=== PATIENT | male | born 1935 | race Caucasian/White ===

== ENCOUNTER 2021-01-03 07:56 | Outpatient (REF) | payer MEDICARE, OTHER, SELFPAY ==
[2021-01-03 11:25] LABS: MANUAL DIFF FLAG NO
[2021-01-03 11:40] LABS: Basophils Percent Auto 0.5 % (0-2); Eosinophils Absolute Auto 0.2 X10*3/uL (0.0-0.4); Eosinophils Percent Auto 2.3 % (0-4); Hematocrit 40.3 % (42-52); Hemoglobin 13.2 g/dl (14.0-18.0); Imm Gran Abs Auto 0.01 X10*3/uL (0.00-0.03); Imm Gran Pct Auto 0.2 % (0.0-0.4); Lymphocytes Absolute Auto 1.8 X10*3/uL (1.2-4.9); Lymphocytes Percent Auto 26.9 % (20-40); Mean Corpuscular HGB Conc 32.8 g/dl (31.0-36.0); Mean Corpuscular Volume 97.6 fL (80-98); Mean Platelet Volume 10.9 fL (9.4-12.4); Monocytes Absolute Auto 0.6 X10*3/uL (0.1-1.2); Monocytes Percent Auto 8.9 % (2-11); Neutrophils Absolute Auto 4.1 X10*3/uL (2.0-8.3); Neutrophils Percent Auto 61.2 % (45-73); Platelet Count 242 X10*3/uL (160-400); Red Blood Count 4.13 X10*6/uL (4.60-5.80); Red Cell Distribution Width 13.9 % (11.0-16.0); White Blood Count 6.7 X10*3/uL (4.8-10.8)
[2021-01-03 11:49] LABS: Alanine Aminotransferase 18 U/L (0-40); Albumin Level 3.7 g/dL (3.5-5.0); Alkaline Phosphatase 61 U/L (39-117); Anion Gap 11 (12-20); Aspartate Amino Transferase 30 U/L (5-37); Bilirubin Direct 0.2 mg/dL (0.0-0.5); Bilirubin Total 0.5 mg/dL (0.0-1.0); Blood Urea Nitrogen 27 mg/dL (9-16); Calcium 9.2 mg/dL (8.4-10.2); Carbon Dioxide 31 mmol/L (22-29); Chloride 101 mmol/L (96-108); Cholesterol 161 mg/dL; Estimated Glomerular Filt Rate > 60; Glucose Fasting 102 mg/dL (60-99); HDL Cholesterol 71 mg/dL; Iron 68 mcg/dL (45-160); LDL Cholesterol Calculated 76 mg/dl; Percent Iron Saturation 21 % (15-50); Potassium 4.6 mmol/L (3.3-5.1); Sodium 138 mmol/L (135-145); Total Iron Binding Capacity 326 mcg/dL (228-428); Total Protein 6.2 g/dL (6.5-8.0); Triglycerides 73 mg/dL; Unsaturated Iron Binding 258 ug/dL
[2021-01-03 12:12] LABS: Ferritin 68 ng/mL (20-250); Prostate Specific Antigen Scr 1.33 ng/mL (<0.05-4.0)
== END 2021-01-03 07:57 | disposition home or self-care (01) ==
LOC: HO.HMGCLDS 07:56
PROVIDERS: PCP Internal Medicine; Visit Provider Internal Medicine
DX: Z00.00 Encounter for general adult medical examination without abnormal findings (principal); R53.83 Other fatigue; E78.00 Pure hypercholesterolemia, unspecified; D64.9 Anemia, unspecified; Z12.5 Encounter for screening for malignant neoplasm of prostate
CPT/HCPCS: 36415; 80048; 80061; 80076; 82728; 83540; 84153; 85025

== ENCOUNTER 2021-03-11 08:10 | Outpatient (REF) | payer MEDICARE, OTHER, SELFPAY ==
[2021-03-11 11:15] LABS: MANUAL DIFF FLAG NO
[2021-03-11 11:28] LABS: Basophils Percent Auto 0.4 % (0-2); Eosinophils Absolute Auto 0.1 X10*3/uL (0.0-0.4); Eosinophils Percent Auto 1.6 % (0-4); Imm Gran Abs Auto 0.03 X10*3/uL (0.00-0.03); Imm Gran Pct Auto 0.4 % (0.0-0.4); Lymphocytes Absolute Auto 1.3 X10*3/uL (1.2-4.9); Lymphocytes Percent Auto 17.1 % (20-40); Mean Corpuscular HGB Conc 33.3 g/dl (31.0-36.0); Mean Corpuscular Hemoglobin 33.1 pg (27.0-33.0); Mean Corpuscular Volume 99.2 fL (80-98); Mean Platelet Volume 10.5 fL (9.4-12.4); Monocytes Absolute Auto 0.5 X10*3/uL (0.1-1.2); Monocytes Percent Auto 6.5 % (2-11); Neutrophils Absolute Auto 5.5 X10*3/uL (2.0-8.3); Platelet Count 279 X10*3/uL (160-400); Red Blood Count 3.63 X10*6/uL (4.60-5.80); Red Cell Distribution Width 13.9 % (11.0-16.0); White Blood Count 7.4 X10*3/uL (4.8-10.8)
[2021-03-11 11:59] LABS: Alanine Aminotransferase 20 U/L (0-40); Albumin Level 3.4 g/dL (3.5-5.0); Alkaline Phosphatase 44 U/L (39-117); Anion Gap 12 (12-20); Aspartate Amino Transferase 27 U/L (5-37); Bilirubin Direct 0.3 mg/dL (0.0-0.5); Bilirubin Total 0.6 mg/dL (0.0-1.0); Blood Urea Nitrogen 27 mg/dL (9-16); Carbon Dioxide 28 mmol/L (22-29); Chloride 99 mmol/L (96-108); Cholesterol 152 mg/dL; Estimated Glomerular Filt Rate > 60; Glucose Fasting 96 mg/dL (60-99); HDL Cholesterol 63 mg/dL; LDL Cholesterol Calculated 72 mg/dl; Potassium 4.6 mmol/L (3.3-5.1); Sodium 134 mmol/L (135-145); Total Protein 5.5 g/dL (6.5-8.0); Triglycerides 88 mg/dL
== END 2021-03-11 08:11 | disposition home or self-care (01) ==
LOC: HO.HMGCLDS 08:10
PROVIDERS: PCP Internal Medicine; Visit Provider Internal Medicine
DX: Z00.00 Encounter for general adult medical examination without abnormal findings (principal); Z12.5 Encounter for screening for malignant neoplasm of prostate; E78.00 Pure hypercholesterolemia, unspecified; R53.83 Other fatigue
CPT/HCPCS: 36415; 80051; 80061; 80076; 82565; 82947; 84153; 84520; 85025

== ENCOUNTER 2021-11-03 02:00 | Inpatient (IN) | payer MEDICARE, OTHER, SELFPAY ==
[2021-11-03] VITALS (8 sets, daily range): BP systolic 105–163; BP diastolic 57–89; PULSE 62–97; RESP 13–20; TEMP 36.1–36.7; O2SAT 96–99; BMI 19.3
--- NOTE | ~2021-11-03 | XR_ITS ---
EXAMINATION: XR CHEST CLINICAL INFORMATION: Leukocytosis. COMPARISON: CT of the thoracic spine done on 07/28/2017. TECHNIQUE: Frontal view of the chest was obtained. FINDINGS: Both lungs are symmetrically expanded and appear clear. The cardiomediastinal silhouette is within normal limits. No evidence of pleural effusion. Post vertebral augmentation-related changes are noted in the thoracic spine, similar to prior study. XR/XR chest 1V IMPRESSION: No radiographic evidence of acute cardiopulmonary disease.
--- NOTE | ~2021-11-03 | XR_ITS ---
EXAMINATION: XR ABDOMEN KUB CLINICAL INDICATION: Constipation COMPARISON: None TECHNIQUE: AP view of the abdomen. FINDINGS: Nonobstructive bowel gas pattern. No dilated loops of bowel. Gas and stool throughout the colon. Mild stool burden with stool in the rectum. The lung bases are clear. Multilevel kyphoplasty. XR/XR KUB IMPRESSION: Mild colonic stool burden, with stool in the rectum.
--- NOTE | ~2021-11-03 | CT_ITS ---
EXAMINATION: CT ABDOMEN AND PELVIS WITHOUT CONTRAST CLINICAL INFORMATION: Rectal pain. Leukocytosis. COMPARISON: None TECHNIQUE: Multidetector volumetric imaging was performed from the superior aspect of the liver through the pubic symphysis. Sagittal and coronal reformatted images were obtained on the technologist's workstation. This CT examination was performed using dose optimization techniques as appropriate, variously including the following: *Automated exposure control *Adjustment of mA and/or kV according to patient size (this includes techniques or standardized protocols for targeted exams where dose is matched to indication/reason for exam; i.e. extremities or head) *Use of iterative reconstruction technique DLP: 418 mGy-cm FINDINGS: Technically limited study due to lack of intravenous contrast. LUNG BASES: The visualized lung bases are unremarkable. Trace amount of simple appearing pericardial effusion is noted. Atherosclerotic coronary arterial calcific disease is present. LIVER, GALLBLADDER, AND BILIARY TREE: The liver is normal in size, shape, and attenuation. No focal hepatic lesion or biliary ductal dilatation is present. The gallbladder is unremarkable with no evidence of radiopaque gallstones, gallbladder wall thickening, or obvious pericholecystic inflammatory changes. PANCREAS: Unremarkable. SPLEEN: Unremarkable. ADRENAL GLANDS: Unremarkable. KIDNEYS AND URETERS: The left kidney is normal in size, shape, and attenuation. No hydronephrosis, hydroureter, or calculi seen. No perinephric stranding. Solitary 3 mm radiopaque nonobstructing right renal calculus identified within the mid lateral calyx (268:4). 2.3 cm maximum dimension exophytic hypodense circumscribed lesion is noted within the medial posterior cortex near the inferior pole with Hounsfield value of 15, consistent with minimally complicated cyst. Mild perinephric stranding is also present, may represent superimposed infection. Correlation with urine lab exam is recommended.. An additional 2.4 cm hypodensity is also noted within the superior pole with Hounsfield value of 21, may represent complicated cyst or hypodense solid lesion, not optimally characterized (203:4). BLADDER: Markedly distended, may represent physiologic changes. No evidence of any calculi, wall thickening, diverticula or inflammatory changes present. GASTROINTESTINAL TRACT: Extensive fecal residual is noted starting from the level of the rectum to the cecum without evidence of any bowel wall thickening or pericolonic inflammatory changes. Note is however made of subtle perirectal stranding within the presacral space, possibility of early changes of Stercoral colitis may have similar appearance. The cecum, the ileocecal junction, the terminal ileum is herniating into the right-sided inguinal canal and is located within the right hemiscrotum without any obstruction. ABDOMINAL WALL: Large right-sided inguinoscrotal hernia containing cecum, proximal ascending colon, terminal ileum is noted without any CT evidence of superimposed obstruction. LYMPH NODES: Normal. VASCULAR: Diffuse atherosclerotic disease of the aorta and is branches. The distal abdominal aorta is ectatic. No evidence of any aneurysm. PELVIC VISCERA: There is no pelvic mass present. No evidence of any free fluid and/or free air. OSSEOUS STRUCTURES: Marked diffuse osteopenia and moderate mid to anterior compression deformity of L2 vertebral body is noted. Vertebral augmentation-related changes are noted within the partially included T11 vertebral body. CT/CT abdomen pelvis wo con IMPRESSION: 1. Technically limited study due to lack of intravenous contrast. Trace amount of simple appearing pericardial effusion is seen. Atherosclerotic coronary arterial disease is noted. 2. Solitary 3 mm nonobstructing right renal radiopaque calculus is noted within the mid lateral calyx. Subtle right renal perinephric stranding is present, may represent superimposed infection. There is however no evidence of any dilated pelvicalyceal system present. Exophytic hypodense 2.3 cm lesion is noted at the inferior pole, most consistent with minimally complicated cyst. An additional 2.4 cm hypodensity at superior pole of the right kidney may represent minimally complicated cyst versus hypodense solid lesion, not optimally characterized. 3. Markedly distended bladder, may represent physiologic changes. 4. Extensive fecal residual from the level of the rectum to the cecum. Subtle perirectal stranding within the presacral space is noted. Early changes of Stercoral colitis may have similar appearance. 5. Large right-sided inguinoscrotal hernia containing cecum, proximal ascending colon and terminal ileum without any CT evidence of superimposed obstruction. 6. Marked diffuse osteopenia and moderate mid to anterior compression deformity of L2 vertebral body, of indeterminate etiology and chronicity. Fleischner guidelines were followed.
[2021-11-03 04:42] LABS: Basophils Percent Auto 0.2 % (0-2); Eosinophils Percent Auto 0.1 % (0-4); Hematocrit 39.7 % (42.0-52.0); Hemoglobin 13.5 g/dl (14.0-18.0); Imm Gran Abs Auto 0.05 X10*3/uL (0.00-0.03); Imm Gran Pct Auto 0.3 % (0.0-0.4); Lymphocytes Absolute Auto 0.5 X10*3/uL (1.2-4.9); Lymphocytes Percent Auto 2.6 % (20-40); Mean Corpuscular Hemoglobin 32.6 pg (27.0-33.0); Mean Corpuscular Volume 95.9 fL (80.0-98.0); Mean Platelet Volume 9.7 fL (9.4-12.4); Monocytes Absolute Auto 1.1 X10*3/uL (0.1-1.2); Monocytes Percent Auto 5.5 % (2-11); Neutrophils Absolute Auto 17.8 x10*3/uL (2.0-8.3); Neutrophils Percent Auto 91.3 % (45-73); Platelet Count 231 X10*3/uL (160-400); Red Blood Count 4.14 X10*6/uL (4.60-5.80); Red Cell Distribution Width 13.3 % (11.0-16.0); SCAN SMEAR FLAG 1; White Blood Count 19.4 X10*3/uL (4.8-10.8)
[2021-11-03 04:43] LABS: MANUAL DIFF FLAG SCAN
[2021-11-03 04:58] LABS: SLIDE REVIEW VERIFIED
[2021-11-03 05:02] LABS: Anion Gap 13 (12-20); Blood Urea Nitrogen 30 mg/dL (9-16); Carbon Dioxide 26 mmol/L (22-29); Chloride 100 mmol/L (96-108); Creatinine Clr Calc Pharmacy 47.3; Estimated Glomerular Filt Rate > 60; Glucose Random 126 mg/dL (60-115); Potassium 4.4 mmol/L (3.3-5.1); Sodium 135 mmol/L (135-145)
--- NOTE | 2021-11-03 05:39 | ED.GENADULT ---
HPI - General Adult General Chief complaint: General Medical Stated complaint: dehydrated, constipation, hernia Time Seen by Provider: 11/03/21 04:17 Source: patient and family Mode of arrival: ambulatory Limitations: no limitations History of Present Illness HPI narrative: Patient comes emergency room complaining of feeling dehydrated, patient states that his mouth feels very cold, reports rectal pain from straining. Patient states that he took lactulose today. Patient denies dysuria, no chest pain or shortness of breath. Patient denies abdominal pain. Patient complaining of rectal pressure at this time Related Data Allergies Allergy/AdvReac Type Severity Reaction Status Date / Time No Known Allergies Allergy Verified 11/03/21 02:13 Review of Systems Review of Systems: Constitutional : No Weight loss, No Fever, No Chills, No Night Sweats, No Fatigue, No Malaise ENT/Mouth : No Hearing loss, No Ear Pain, No Nasal Congestion, No Sinus Pain, No Hoarseness, No sore throat, No Rhinorrhea, No Swallowing Difficulty Eyes: No Eye Pain, No Swelling, No Redness, No Foreign Body, No Discharge, No Vision Changes Cardiovascular : No Chest Pain, No SOB, No Dyspnea on Exertion, No Orthopnea, No Edema, No Palpitations Respiratory : No Cough, No Sputum, No Wheezing, No Smoke Exposure, No Dyspnea Gastrointestinal : Denies nausea vomiting or diarrhea, complaining of constipation, used lactulose prior to arrival. Complaining of rectal pressure, has black stool, treated to iron Genitourinary : no irregular bleeding, No Dysuria, No Urinary Frequency, No Hematuria, No Urinary Incontinence, No Urgency, No Flank Pain, No Urinary Flow Changes, No Hesitancy Musculoskeletal : No joint pain, No Myalgias, No Joint Swelling Skin : No Skin Lesions, No rash Neuro : No Weakness, No Numbness, No Paresthesias, No Loss of Consciousness, No Dizziness, No Headache Psych : No Anxiety/Panic, No Depression, No SI/HI/AH/VH, No Social Issues, Heme/Lymph: No Bruising, No Bleeding,No Lymphadenopathy Endocrine : No Polyuria, No Polydipsia, No Temperature Intolerance PMF Social History Social History Advance Directives: No Advance Directives Information Provided: Yes Physical Exam ED Vital Signs: Vital Signs - 24 hr 11/03/21 02:06 11/03/21 06:21 Temperature 97 F 98.1 F Pulse Rate 97 77 Respiratory Rate 20 13 Blood Pressure 156/82 H 133/67 Pulse Oximetry 97 97 BMI result Body Mass Index 19.3 Const Other: Appearance: Alert. Oriented X3. No acute distress. Eyes: Pupils equal, round and reactive to light. ENT: Pharynx normal. Neck: Normal inspection. Neck supple. No lymph nodes noted. No crepitus CVS: Normal heart rate and rhythm. Pulses normal. Normal S1 and S2 Respiratory: No respiratory distress. Breath sounds normal. No Wheezing. No rales Abdomen: Soft and nontender. Digital rectal exam shows brown stool Skin: Skin warm and dry. Normal skin color. Normal skin turgor. Extremities: No lower extremity edema. No Lacerations. No Rash Neuro: Oriented X 3. No motor deficit. No sensory deficit. Moving all extremities. No slurred speech. CN 2 through 12 grossly intact Psych: calm, cooperative, normal affect Course Course Course Narrative: When patient came in, labs were drawn. Patient has a white blood cell count of 19.4 which is new for him. At this time, there is no source of infection. Patient has known fever or chills, denies UTI or URI symptoms. The rest of the labs are pending, abdominal CT scan, urinalysis and chest x-ray. Flu and COVID tests pending I discussed with the patient and his daughter that he has blood in the stool. It is possible that is secondary to hemorrhoids versus colitis. CT scan is pending. Also, there is no clear source of infection at the time, chest x-ray and UA pending. Sepsis is not suspected. Sign-out given to Dr. Oliver Medical Decision Making Lab Data Result diagrams: 11/03/21 04:38 11/03/21 04:38 Labs: Lab Results 11/03/21 11/03/21 11/03/21 Range/Units 04:38 04:38 05:44 WBC 19.4 H (4.8-10.8) X10*3/uL RBC 4.14 L (4.60-5.80) X10*6/uL Hgb 13.5 L (14.0-18.0) g/dl Hct 39.7 L (42.0-52.0) % MCV 95.9 (80.0-98.0) fL MCH 32.6 (27.0-33.0) pg MCHC 34.0 (31.0-36.0) g/dl RDW 13.3 (11.0-16.0) % Plt Count 231 (160-400) X10*3/uL MPV 9.7 (9.4-12.4) fL Immature Gran % (Auto) 0.3 (0.0-0.4) % Neut % (Auto) 91.3 H (45-73) % Lymph % (Auto) 2.6 L (20-40) % [place] % (Auto) 5.5 (2-11) % Eos % (Auto) 0.1 (0-4) % Baso % (Auto) 0.2 (0-2) % Lymph # (Auto) 0.5 L (1.2-4.9) X10*3/uL [place] # (Auto) 1.1 (0.1-1.2) X10*3/uL Eos # (Auto) 0.0 (0.0-0.4) X10*3/uL Baso # (Auto) 0.0 (0.0-0.2) X10*3/uL Abs Immat Gran (auto) 0.05 H (0.00-0.03) X10*3/uL Absolute Neuts (auto) 17.8 H (2.0-8.3) x10*3/uL Absolute Nucleated RBC 0.000 (0.0-0.012) X10*3/uL Nucleated RBC % (auto) 0.0 (0.0-0.2) /100WBC Smear Tech's Comments VERIFIED Sodium 135 (135-145) mmol/L Potassium 4.4 (3.3-5.1) mmol/L Chloride 100 (96-108) mmol/L Carbon Dioxide 26 (22-29) mmol/L Anion Gap 13 (12-20) BUN 30 H (9-16) mg/dL Creatinine 0.97 (0.5-1.4) mg/dL Estim Creat Clear Calc 47.3 Estimated GFR > 60 Random Glucose 126 H (60-115) mg/dL Lactic Acid (0.5-2.0) mmol/L Calcium 9.0 (8.4-10.2) mg/dL Total Bilirubin 0.5 (0.0-1.0) mg/dL Direct Bilirubin 0.3 (0.0-0.5) mg/dL AST 31 (5-37) U/L ALT 14 (0-40) U/L Alkaline Phosphatase 56 D (39-117) U/L Total Protein 6.2 L (6.5-8.0) g/dL Albumin 3.6 (3.5-5.0) g/dL Stool Occult Blood POSITIVE (NEGATIVE) COVID-19 (ADY) (Negative) COVID-19 Clin Com Influenza Type A (TUSHAR) (Negative) Influenza Type B (TUSHAR) (Negative) Influenza A & B Note 11/03/21 11/03/21 11/03/21 Range/Units 06:18 06:18 06:18 WBC (4.8-10.8) X10*3/uL RBC (4.60-5.80) X10*6/uL Hgb (14.0-18.0) g/dl Hct (42.0-52.0) % MCV (80.0-98.0) fL MCH (27.0-33.0) pg MCHC (31.0-36.0) g/dl RDW (11.0-16.0) % Plt Count (160-400) X10*3/uL MPV (9.4-12.4) fL Immature Gran % (Auto) (0.0-0.4) % Neut % (Auto) (45-73) % Lymph % (Auto) (20-40) % [place] % (Auto) (2-11) % Eos % (Auto) (0-4) % Baso % (Auto) (0-2) % Lymph # (Auto) (1.2-4.9) X10*3/uL [place] # (Auto) (0.1-1.2) X10*3/uL Eos # (Auto) (0.0-0.4) X10*3/uL Baso # (Auto) (0.0-0.2) X10*3/uL Abs Immat Gran (auto) (0.00-0.03) X10*3/uL Absolute Neuts (auto) (2.0-8.3) x10*3/uL Absolute Nucleated RBC (0.0-0.012) X10*3/uL Nucleated RBC % (auto) (0.0-0.2) /100WBC Smear Tech's Comments Sodium (135-145) mmol/L Potassium (3.3-5.1) mmol/L Chloride (96-108) mmol/L Carbon Dioxide (22-29) mmol/L Anion Gap (12-20) BUN (9-16) mg/dL Creatinine (0.5-1.4) mg/dL Estim Creat Clear Calc Estimated GFR Random Glucose (60-115) mg/dL Lactic Acid 0.7 (0.5-2.0) mmol/L Calcium (8.4-10.2) mg/dL Total Bilirubin (0.0-1.0) mg/dL Direct Bilirubin (0.0-0.5) mg/dL AST (5-37) U/L ALT (0-40) U/L Alkaline Phosphatase (39-117) U/L Total Protein (6.5-8.0) g/dL Albumin (3.5-5.0) g/dL Stool Occult Blood (NEGATIVE) COVID-19 (ADY) Negative (Negative) COVID-19 Clin Com See Note Influenza Type A (TUSHAR) Negative (Negative) Influenza Type B (TUSHAR) Negative (Negative) Influenza A & B Note See Note Discharge Plan Discharge Clinical Impression: Leukocytosis, GI bleed Patient Disposition: Still a Patient
[2021-11-03 05:56] LABS: OBS Int Ctl Valid YES; OBS1 POSITIVE (NEGATIVE)
[2021-11-03 06:04] LABS: Alanine Aminotransferase 14 U/L (0-40); Albumin Level 3.6 g/dL (3.5-5.0); Alkaline Phosphatase 56 U/L (39-117); Aspartate Amino Transferase 31 U/L (5-37); Bilirubin Direct 0.3 mg/dL (0.0-0.5); Bilirubin Total 0.5 mg/dL (0.0-1.0); Total Protein 6.2 g/dL (6.5-8.0)
[2021-11-03 06:38] LABS: Lactic Acid 0.7 mmol/L (0.5-2.0)
[2021-11-03 06:44] LABS: IDNOW Serial# 16C4AD1C; Influenza A Negative (Negative); Influenza B2 Negative (Negative)
[2021-11-03 06:45] LABS: COVID-19 Test Negative (Negative)
[2021-11-03 08:30] LABS: Appearance Urine CLEAR; Color Urine YELLOW; Glucose Urine UA NEG (NEG); Leukocyte Esterase Urine NEG (NEG); Nitrite Urine NEG (NEG); Specific Gravity - Urine 1.025 (1.005-1.025); Urine Blood NEG (NEG); Urine Ketones 15 MG/DL (NEG); Urine Protein NEG (NEG-TRACE)
[2021-11-03] MEDS: levoFLOXacin/D5W 500 MG/100 ML PIGGYBACK 100 MG IV (08:47)
--- NOTE | 2021-11-03 10:02 | P.HPHOSP_ITS ---
History of Present Illness Date of Service: 11/03/21 Chief Complaint: Constipation, abdominal pressure an 86 years old male with PMH of Parkinson, in CHF, HTN, depression among others who presented to the hospital complaining of constipation and pressure in his abdomen. The patient reported not moved his bowels for few days prior to admission and that he woke up in level with the night feeling very constipated, dry and weak Cardizem before with reported pressure in his abdomen. He denies any fever, chills, abdominal pain, nausea or vomiting or urinary symptoms. In the emergency a CT scan of the abdomen was consistent with large stool burden and evidence of stercoral colitis. Admitted for further evaluation and treatment. Review of Systems Review of Systems: No fever, chills But has generalized weakness No chest pain, palpitation No shortness of breath or coughing reporting abdominal pressure with associated constipation No urinary symptoms No any rash or wounds PMFSH Social History Patient Tobacco Use Status: Never used Tobacco Advance Directives: No Advance Directives Information Provided: Yes Meds Allergies Allergy/AdvReac Type Severity Reaction Status Date / Time No Known Allergies Allergy Verified 11/03/21 02:13 Active Medications: Current Medications Pharmacy Consult (Consult Rx Perform Med Rec) 1 each MISCELLANE ONCE PRN PRN Reason: Consult order Home Medications Medication Instructions Recorded Confirmed Last Taken Type alendronate 70 mg tablet 1 tab PO SA@0900 11/03/21 11/03/21 10/26/21 History ascorbic acid (vitamin C) 500 mg 500 mg PO DAILY 11/03/21 11/03/21 11/02/21 History tablet carbidopa 25 mg-levodopa 100 mg 1 tab PO TID 11/03/21 11/03/21 11/02/21 History tablet docusate sodium 100 mg capsule 100 mg PO TID 11/03/21 11/03/21 11/02/21 History (Colace) ferrous sulfate 325 mg (65 mg 325 mg PO DAILY 11/03/21 11/03/21 11/02/21 History iron) tablet furosemide 20 mg tablet 1 tab PO DAILY 11/03/21 11/03/21 11/02/21 History ipratropium bromide 21 mcg (0.03 1 spray INTRANASAL QID PRN 11/03/21 11/03/21 Unknown History %) nasal spray lactulose 10 gram/15 mL oral 30 ml PO BID 11/03/21 11/03/21 11/02/21 History solution lorazepam 0.5 mg tablet 0.5 mg PO DAILY PRN 11/03/21 11/03/21 Unknown History losartan 50 mg tablet 1 tab PO DAILY 11/03/21 11/03/21 11/02/21 History lovastatin 40 mg tablet 1 tab DAILY 11/03/21 11/03/21 11/02/21 History metoprolol succinate 25 mg 1 tab PO DAILY 11/03/21 11/03/21 11/02/21 History tablet,extended release 24 hr multivitamin 1 tab PO DAILY 11/03/21 11/03/21 11/02/21 History pentazocine 50 mg-naloxone 0.5 mg 1 tab PO TID 11/03/21 11/03/21 11/02/21 History tablet selegiline HCl 5 mg capsule 1 cap PO DAILY 11/03/21 11/03/21 11/02/21 History sertraline 50 mg tablet 25 mg PO DAILY 11/03/21 11/03/21 11/02/21 History Physical Exam Vital Signs and Narrative: Vital Signs: Last Vital Signs Temp 98.1 F 11/03/21 06:21 Pulse 67 11/03/21 08:55 Resp 14 11/03/21 08:55 BP 119/58 L 11/03/21 08:55 Pulse Ox 96 11/03/21 08:55 BMI result Body Mass Index 19.3 Const: Other: Constitutional : Alert, oriented, not in distress Neck : Normal inspection, Supple Cardiovascular : RRR, no JVP, no lower extremity edema Respiratory : fair bilateral air entry, no crackles, wheezes or rhonchi Gastrointestinal: soft, lax, decreased bowel sounds, Non tender with palpation but sensitive Skin : Warm, Dry Neurological : Alert & oriented to self and place, No focal deficit , CN 2-12 within normal Results Labs CBC and Chem 7: 11/03/21 04:38 11/03/21 04:38 Labs: Laboratory Results - last 24 hr 11/03/21 11/03/21 11/03/21 04:38 04:38 05:44 MCV 95.9 MCH 32.6 MCHC 34.0 RDW 13.3 Plt Count 231 MPV 9.7 Immature Gran % (Auto) 0.3 Neut % (Auto) 91.3 H Lymph % (Auto) 2.6 L [place] % (Auto) 5.5 Eos % (Auto) 0.1 Baso % (Auto) 0.2 Lymph # (Auto) 0.5 L [place] # (Auto) 1.1 Eos # (Auto) 0.0 Baso # (Auto) 0.0 Abs Immat Gran (auto) 0.05 H Absolute Neuts (auto) 17.8 H Absolute Nucleated RBC 0.000 Nucleated RBC % (auto) 0.0 Smear Tech's Comments VERIFIED Anion Gap 13 Estim Creat Clear Calc 47.3 Estimated GFR > 60 Random Glucose 126 H Lactic Acid Calcium 9.0 Total Bilirubin 0.5 Direct Bilirubin 0.3 AST 31 ALT 14 Alkaline Phosphatase 56 D Total Protein 6.2 L Albumin 3.6 Urine Color Urine Appearance Urine pH Ur Specific [place] Urine Protein Urine Glucose (UA) Urine Ketones Urine Blood Urine Nitrite Ur Leukocyte Esterase Stool Occult Blood POSITIVE COVID-19 (ADY) COVID-19 Clin Com Influenza Type A (TUSHAR) Influenza Type B (TUSHAR) Influenza A & B Note 11/03/21 11/03/21 11/03/21 06:18 06:18 06:18 MCV MCH MCHC RDW Plt Count MPV Immature Gran % (Auto) Neut % (Auto) Lymph % (Auto) [place] % (Auto) Eos % (Auto) Baso % (Auto) Lymph # (Auto) [place] # (Auto) Eos # (Auto) Baso # (Auto) Abs Immat Gran (auto) Absolute Neuts (auto) Absolute Nucleated RBC Nucleated RBC % (auto) Smear Tech's Comments Anion Gap Estim Creat Clear Calc Estimated GFR Random Glucose Lactic Acid 0.7 Calcium Total Bilirubin Direct Bilirubin AST ALT Alkaline Phosphatase Total Protein Albumin Urine Color Urine Appearance Urine pH Ur Specific [place] Urine Protein Urine Glucose (UA) Urine Ketones Urine Blood Urine Nitrite Ur Leukocyte Esterase Stool Occult Blood COVID-19 (ADY) Negative COVID-19 Clin Com See Note Influenza Type A (TUSHAR) Negative Influenza Type B (TUSHAR) Negative Influenza A & B Note See Note 11/03/21 08:01 MCV MCH MCHC RDW Plt Count MPV Immature Gran % (Auto) Neut % (Auto) Lymph % (Auto) [place] % (Auto) Eos % (Auto) Baso % (Auto) Lymph # (Auto) [place] # (Auto) Eos # (Auto) Baso # (Auto) Abs Immat Gran (auto) Absolute Neuts (auto) Absolute Nucleated RBC Nucleated RBC % (auto) Smear Tech's Comments Anion Gap Estim Creat Clear Calc Estimated GFR Random Glucose Lactic Acid Calcium Total Bilirubin Direct Bilirubin AST ALT Alkaline Phosphatase Total Protein Albumin Urine Color YELLOW Urine Appearance CLEAR Urine pH 6.0 Ur Specific [place] 1.025 Urine Protein NEG Urine Glucose (UA) NEG Urine Ketones 15 Urine Blood NEG Urine Nitrite NEG Ur Leukocyte Esterase NEG Stool Occult Blood COVID-19 (ADY) COVID-19 Clin Com Influenza Type A (TUSHAR) Influenza Type B (TUSHAR) Influenza A & B Note Imaging Radiologist's Impressions: Impressions KUB X-Ray 11/03/21 04:35 IMPRESSION: Mild colonic stool burden, with stool in the rectum. Chest X-Ray 11/03/21 06:55 IMPRESSION: No radiographic evidence of acute cardiopulmonary disease. Abdomen/Pelvis CT 11/03/21 07:00 IMPRESSION: 1. Technically limited study due to lack of intravenous contrast. Trace amount of simple appearing pericardial effusion is seen. Atherosclerotic coronary arterial disease is noted. 2. Solitary 3 mm nonobstructing right renal radiopaque calculus is noted within the mid lateral calyx. Subtle right renal perinephric stranding is present, may represent superimposed infection. There is however no evidence of any dilated pelvicalyceal system present. Exophytic hypodense 2.3 cm lesion is noted at the inferior pole, most consistent with minimally complicated cyst. An additional 2.4 cm hypodensity at superior pole of the right kidney may represent minimally complicated cyst versus hypodense solid lesion, not optimally characterized. 3. Markedly distended bladder, may represent physiologic changes. 4. Extensive fecal residual from the level of the rectum to the cecum. Subtle perirectal stranding within the presacral space is noted. Early changes of Stercoral colitis may have similar appearance. 5. Large right-sided inguinoscrotal hernia containing cecum, proximal ascending colon and terminal ileum without any CT evidence of superimposed obstruction. 6. Marked diffuse osteopenia and moderate mid to anterior compression deformity of L2 vertebral body, of indeterminate etiology and chronicity. Fleischner guidelines were followed. Assessment and Plan (1) Leukocytosis: Status: Acute (2) Stercoral colitis: Status: Acute (3) Fecal impaction: Status: Acute (4) Positive occult stool blood test: Status: Acute Plan an 86 years old male with PMH of Parkinson, in CHF, HTN, depression among others who presented to the hospital complaining of constipation and pressure in his abdomen. stercoral colitis Fecal impaction Seen on CT scan as reported Disimpacted, started on lactulose and fiber Received IV antibiotic, to hold Keep gentle hydration Leukocytosis Likely reactive not due to infection To monitor after holding further antibiotics Positive occult blood No bleeding reported, hemoglobin stable Likely hemorrhoidal bleeding Monitor H and H Parkinson Continue Sinemet Hypertension continue metoprolol, losartan Hold Lasix DVT PPX Lovenox the patient would likely need 2 overnight hospital stay for evaluation of possible infectious colitis and Monitor his blood levels with positive occult blood to prevent any further decompensation in to severe sepsis. Quality Stroke Does the patient have a stroke diagnosis?: No VTE Prior VTE?: No VTE Risk Level:: Medical - moderate - high VTE Device Contraindication: Treatment Not Indicated VTE Drug Contraindication: N/A - Med Ordered
--- NOTE | 2021-11-03 10:11 | PC.NURSE ---
pt alert and oriented, denies pain.. pt disimpacted by Dr. Oliver, large amount of pebble sized feces removed, pt tolerated well. pre and post vss.
--- NOTE | 2021-11-03 10:40 | PHA.MEDREC ---
Pharmacy Consult ? Medication Reconciliation Pharmacy has completed the medication reconciliation. spoke with patient and daughter who had a list of medications.
[2021-11-03] MEDS: 0.9 % Sodium Chloride 1,000 ML 80 ML IVCONT ×2 (11:01→23:04)
[2021-11-03] MEDS: Carbidopa/Levodopa 25/100 TABLET 1 TAB PO (20:03)
[2021-11-03] MEDS: Lactulose 20 GM/30 ML SOLUTION PO (20:03)
[2021-11-03] MEDS: Docusate Sodium 100 MG CAPSULE PO (20:03)
[2021-11-04] VITALS (7 sets, daily range): BP systolic 125–156; BP diastolic 7–78; PULSE 58–75; RESP 15–18; TEMP 36.2–37; O2SAT 93–99; BMI 19.3
[2021-11-04 04:57] LABS: Hematocrit 36.6 % (42.0-52.0); Hemoglobin 12.2 g/dl (14.0-18.0); Mean Corpuscular HGB Conc 33.3 g/dl (31.0-36.0); Mean Corpuscular Hemoglobin 32.3 pg (27.0-33.0); Mean Corpuscular Volume 96.8 fL (80.0-98.0); Mean Platelet Volume 9.9 fL (9.4-12.4); Platelet Count 197 X10*3/uL (160-400); Red Blood Count 3.78 X10*6/uL (4.60-5.80); Red Cell Distribution Width 13.4 % (11.0-16.0); White Blood Count 8.7 X10*3/uL (4.8-10.8)
[2021-11-04 05:14] LABS: Anion Gap 8 (12-20); Blood Urea Nitrogen 19 mg/dL (9-16); Calcium 8.2 mg/dL (8.4-10.2); Carbon Dioxide 30 mmol/L (22-29); Chloride 102 mmol/L (96-108); Creatinine Clr Calc Pharmacy 54.6; Estimated Glomerular Filt Rate > 60; Glucose Random 91 mg/dL (60-115); Potassium 4.2 mmol/L (3.3-5.1); Sodium 136 mmol/L (135-145)
[2021-11-04] MEDS: Losartan Potassium 50 MG TABLET PO (09:22)
[2021-11-04] MEDS: Multivitamin TABLET 1 TAB PO (09:22)
[2021-11-04] MEDS: Carbidopa/Levodopa 25/100 TABLET 1 TAB PO ×3 (09:22→21:20)
[2021-11-04] MEDS: Ascorbic Acid 500 MG TABLET PO (09:22)
[2021-11-04] MEDS: Metoprolol Succinate ER 25 MG TAB.ER.24H PO (09:22)
[2021-11-04] MEDS: Docusate Sodium 100 MG CAPSULE PO ×3 (09:22→21:20)
[2021-11-04] MEDS: Sertraline HCL 25 MG TABLET PO (09:22)
[2021-11-04] MEDS: Lactulose 20 GM/30 ML SOLUTION PO ×2 (09:22→21:20)
[2021-11-04] MEDS: polyethylene glycoL 3350 17 GM POWD.PACK PO (09:27)
--- NOTE | 2021-11-04 10:14 | P.PNIM_ITS ---
Subjective Subjective Date of Service: 11/04/21 Interval History: seen and evaluated this morning Sitting comfortable in his bed having breakfast No bowel movement since last night No reported overnight events Review of Systems No fever, chills But has generalized weakness No chest pain, palpitation No shortness of breath or coughing reporting abdominal pressure has improved No urinary symptoms No any rash or wounds Physical Exam Vital Signs: Vital Signs: Last Vital Signs Temp 97.9 F 11/04/21 08:26 Pulse 75 11/04/21 09:11 Resp 18 11/04/21 08:26 BP 156/78 H 11/04/21 09:11 Pulse Ox 97 11/04/21 09:11 BMI result Body Mass Index 19.3 Const: Other: Constitutional : Alert, oriented, not in distress Neck : Normal inspection, Supple Cardiovascular : RRR, no JVP, no lower extremity edema Respiratory : fair bilateral air entry, no crackles, wheezes or rhonchi Gastrointestinal: soft, lax, having regular bowel sounds, Non tender with palpation Skin : Warm, Dry Neurological : Alert & oriented to self and place, No focal deficit , CN 2-12 within normal Objective Data Active Medications Acetaminophen (Acetaminophen 325 Mg Tablet) 650 mg PO Q6H PRN PRN Reason: Pain, Mild (Pain Scale 1-3) Ascorbic Acid (Ascorbic Acid 500 Mg Tablet) 500 mg PO DAILY [facility] Last Admin: 11/04/21 09:22 Dose: 500 mg Documented by: BRANDY Carbidopa/Levodopa (Carbidopa/Levodopa 25/100 Tablet) 1 tab PO TID [facility] Last Admin: 11/04/21 09:22 Dose: 1 tab Documented by: BRANDY Docusate Sodium (Docusate Sodium 100 Mg Capsule) 100 mg PO TID [facility] Last Admin: 11/04/21 09:22 Dose: 100 mg Documented by: BRANDY Sodium Chloride (Ns) 1,000 mls @ 80 mls/hr IVCONT .[id number] [facility] Last Admin: 11/03/21 23:04 Dose: 80 mls/hr Documented by: DUGLAS Ipratropium Edwards (Ipratropium Edwards Kip 0.03 % 30 Ml [place]) 1 spray NOSTRIL-B QID PRN PRN Reason: Allergy Symptoms Lactulose (Lactulose 20 Gm/30 Ml Solution) 20 gm PO BID [facility] Last Admin: 11/04/21 09:22 Dose: 20 gm Documented by: BRANDY Lorazepam (Lorazepam 0.5 Mg Tablet) 0.5 mg PO DAILY PRN PRN Reason: Anxiety Losartan Potassium (Losartan Potassium 50 Mg Tablet) 50 mg PO DAILY [facility]; Protocol Last Admin: 11/04/21 09:22 Dose: 50 mg Documented by: BRANDY Metoprolol Succinate (Metoprolol Succinate Er 25 Mg Tab.Er.24h) 25 mg PO DAILY [facility]; Protocol Last Admin: 11/04/21 09:22 Dose: 25 mg Documented by: BRANDY Multivitamins/Vitamin C (Multivitamin Tablet) 1 tab PO DAILY [facility] Last Admin: 11/04/21 09:22 Dose: 1 tab Documented by: RBANDY Pt Own Med ( Pentazocine-Naloxone 50-0.5 Mg Tablet) 1 tab PO TID [facility] Last Admin: 11/04/21 09:21 Dose: 1 tab Documented by: BRANDY Ondansetron HCl (Ondansetron Hcl 4 Mg/2 Ml Vial) 4 mg IVPUSH Q8H PRN PRN Reason: Nausea and Vomiting Pharmacy Consult (Consult Rx Perform Med Rec) 1 each MISCELLANE ONCE PRN PRN Reason: Consult order Polyethylene Glycol (Polyethylene Glycol 3350 17 Gm Powd.Pack) 17 gm PO DAILY [facility] Last Admin: 11/04/21 09:27 Dose: 17 gm Documented by: BRANDY Psyllium Hydrophilic Mucilloid (Psyllium Seed 3.4 Gm Powd.Pack) 3.4 gm PO DAILY [facility] Last Admin: 11/04/21 09:22 Dose: 3.4 gm Documented by: BRANDY Selegiline HCl (Selegiline Hcl 5 Mg Capsule) 5 mg PO DAILY [facility] Last Admin: 11/04/21 09:22 Dose: 5 mg Documented by: BRANDY Sertraline HCl (Sertraline Hcl 25 Mg Tablet) 25 mg PO DAILY [facility] Last Admin: 11/04/21 09:22 Dose: 25 mg Documented by: BRANDY Sodium Chloride (0.9 % Sodium Chloride Flush 3 Ml Syringe) 3 ml IVFLUSH QSHIFT [facility] Last Admin: 11/04/21 09:23 Dose: Not Given Documented by: BRANDY Non-Admin Reason: IV Running Labs CBC & Chem 7: 11/04/21 04:34 11/04/21 04:34 Labs: Laboratory Results - last 24 hr 11/04/21 11/04/21 04:34 04:34 MCV 96.8 MCH 32.3 MCHC 33.3 RDW 13.4 Plt Count 197 MPV 9.9 Absolute Nucleated RBC 0.000 Nucleated RBC % (auto) 0.0 Anion Gap 8 L Estim Creat Clear Calc 54.6 Estimated GFR > 60 Random Glucose 91 Calcium 8.2 L D Microbiology Microbiology Results: Microbiology 11/03/21 06:33 Blood Culture - Preliminary Blood - Venous No growth after 24 hours. 11/03/21 06:18 Blood Culture - Preliminary Blood - Venous No growth after 24 hours. Assessment and Plan (1) Leukocytosis: Status: Acute (2) Stercoral colitis: Status: Acute (3) Fecal impaction: Status: Acute (4) Physical deconditioning: Status: Acute Plan an 86 years old male with PMH of Parkinson, in CHF, HTN, depression among others who presented to the hospital complaining of constipation and pressure in his abdomen. stercoral colitis Fecal impaction, disimpacted Seen on CT scan as reported Received IV antibiotic, to hold as no fever, pain or diarrhea start MiraLax and Metamucil continue lactulose Keep gentle hydration for the rest of the day Leukocytosis Likely reactive not due to infection resolved To monitor after holding further antibiotics Positive occult blood No bleeding reported, hemoglobin stable Likely hemorrhoidal bleeding Monitor H and H physical deconditioning PT evaluation, ST are placement Parkinson Continue Sinemet Hypertension continue metoprolol, losartan Hold Lasix DVT PPX Lovenox the patient would Need overnight hospital stay for evaluation of possible infectious colitis and Monitor his blood levels with positive occult blood to prevent any further decompensation in to severe sepsisPending short-term rehab placement. Quality Stroke Does the patient have a stroke diagnosis?: No VTE Prior VTE?: No VTE Risk Level:: Medical - moderate - high VTE Device Contraindication: Treatment Not Indicated VTE Drug Contraindication: N/A - Med Ordered
--- NOTE | 2021-11-04 14:58 | MHC.CLN ---
NUTRITION CONSULT FOR POOR PO INTAKE. CURRENT INTAKE 75-100% AND PATIENT REPORTS GOOD APPETITE. TAKES CARNATION INSTANT BREAKFAST TWICE DAILY AT HOME. DOES NOT WANT SUPPLEMENT DURING ADMISSION. BMI=19.3 AND PATIENT IS 81% IBW. REPORTS RECENT WEIGHTS HAVE BEEN RELATIVELY STABLE. NO ADDITIONAL NUTRITION INTERVENTIONS AT THIS TIME.
--- NOTE | 2021-11-04 15:14 | MHC.CM.PN ---
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 PATIENT LIVES AT HOME HIS FAMILY VISITS HIM FREQUENTLY WITH IN THE DAY. HE HAS NO VNA OR DME SERVICES IN THE HOME. I [id number] WITH HIM THE THE PHYSICAL THEARPIST RECOMENDED HSHORT TERM REHAB HE AND HIS DAUGHTER DO NOT FEEL THIS IS REQUIRED THEY WILL TAKE THIS UNDER REVIEW. PATIENT IS WILLING TO HAVE NEW REFERRAL THE VNA FOR NURSING HX( [place] CHF,HTN )AFTER THE WEEKEND FELT WEEKENED CONSTIPATION AND ABD DISCOMFORT ,CONFIRMED COVID [facility] PCP DR MCGEE. TRANSPORTSTION FAMILY DISCHARGE PLAN HOME WITH 1. NEW REFERRAL TO THE [facility] ([facility]) FOR NURSING AND HOME PT 2. P,T, RECOMENDED STR (PT/DTR DO NOT FEEL THIS IS NECESSARY AND WE WILL REVISIT THIS RECOMENDATION ON 11/05/[address] MCGEE TRANSPORTATION FAMILY IMM 11/04/21
[2021-11-04] MEDS: 0.9 % Sodium Chloride Flush 3 ML SYRINGE IVFLUSH ×2 (15:35→21:20)
[2021-11-05 03:34] VITALS: BP 154/42; PULSE 68; RESP 16; TEMP 36.5; O2SAT 95
[2021-11-05 06:42] LABS: Anion Gap 10 (12-20); Blood Urea Nitrogen 15 mg/dL (9-16); Calcium 8.1 mg/dL (8.4-10.2); Carbon Dioxide 27 mmol/L (22-29); Chloride 101 mmol/L (96-108); Creatinine Clr Calc Pharmacy 55.3; Estimated Glomerular Filt Rate > 60; Glucose Random 97 mg/dL (60-115); Potassium 4.5 mmol/L (3.3-5.1); Sodium 133 mmol/L (135-145)
[2021-11-05 07:51] VITALS: BP 100/63; PULSE 72; RESP 16; TEMP 36.7; O2SAT 96
--- NOTE | 2021-11-05 09:23 | P.CDIC_ITS ---
CDI Concurrent Query Documentation Clarification: PHYSICIAN'S DOCUMENTATION REQUEST Date of Query: 11/05/21922 Patient Name: Jovani Cavanaugh Admit Date: 11/03/21 Dear Doctor, A review of the medical record indicates additional documentation may be needed. Please review below and update the documentation accordingly. Clinical Indicators: Risk Factors/Clinical Indicators/Treatments H&P: PMH - Congestive heart failure Home meds: Furosemide 1 Tab PO daily Please provide further specificity regarding the most likely type and acuity of CHF you are evaluating, treating, or monitoring. Examples include: Type: * Systolic * Diastolic * Combined Systolic/Diastolic * Other ? please specify * Unable to determine Acuity: * Acute * Chronic * Acute on chronic * Unable to determine Use of terms such as suspected, likely, concern for, or probable (associated with a specific diagnosis that is being evaluated, monitored, or treated as if it exists) are acceptable and can be coded in the inpatient setting, when documented at the time of discharge. Thank you, Gillain Richey [facility], CDIS Extension: [phone] Please use your independent medical judgment in providing your response. THIS QUERY IS PART OF THE PERMANENT MEDICAL RECORD Provider Response: Other Other Diagnosis: chronic diastolic CHF
[2021-11-05] MEDS: Multivitamin TABLET 1 TAB PO (09:30)
[2021-11-05] MEDS: Sertraline HCL 25 MG TABLET PO (09:30)
[2021-11-05] MEDS: Metoprolol Succinate ER 25 MG TAB.ER.24H PO (09:30)
[2021-11-05] MEDS: Ascorbic Acid 500 MG TABLET PO (09:30)
[2021-11-05] MEDS: Lactulose 20 GM/30 ML SOLUTION PO (09:30)
[2021-11-05] MEDS: Docusate Sodium 100 MG CAPSULE PO ×2 (09:30→14:54)
[2021-11-05] MEDS: Carbidopa/Levodopa 25/100 TABLET 1 TAB PO ×2 (09:30→14:54)
[2021-11-05] MEDS: Losartan Potassium 50 MG TABLET PO (09:30)
[2021-11-05] MEDS: polyethylene glycoL 3350 17 GM POWD.PACK PO (09:31)
[2021-11-05] MEDS: 0.9 % Sodium Chloride Flush 3 ML SYRINGE IVFLUSH (09:32)
--- NOTE | 2021-11-05 11:20 | PM.DS ---
DS: Providers Provider Date of Service: 11/05/21 Date of admission: 11/03/21 09:56 Primary care physician: Chadd Chang MD DS: Diagnosis Discharge Diagnosis (1) Leukocytosis: Status: Acute (2) Stercoral colitis: Status: Acute (3) Fecal impaction: Status: Acute (4) Physical deconditioning: Status: Acute (5) Hyponatremia: Status: Acute (6) Positive occult stool blood test: Status: Acute DS: Summary Hospital Course Hospital Course: admission note HPI ?an 86 years old male with PMH of Parkinson, in CHF, HTN, depression among others who presented to the hospital complaining of constipation and pressure in his abdomen.? The patient reported not moved his bowels for few days prior to admission and that he woke up in level with the night feeling very constipated, dry and weak Cardizem before with reported pressure in his abdomen.? He denies any fever, chills, abdominal pain, nausea or vomiting or urinary symptoms.? In the emergency a CT scan of the abdomen was consistent with large stool burden and evidence of? stercoral colitis.? Admitted for further evaluation and treatment. Hospital course The patient was admitted to the hospital for treatment of severe constipation and fecal impaction. He was disimpacted in the emergency and had an enema with large bowel movement documented that day. The patient felt much relieved after that as he was started on MiraLax and Metamucil and passed small bowel movements the next day. He was noted to have leukocytosis at time of presentation as a CT scan showed an evidence of stercolitis. Received antibiotic in the emergency but was held afterward with no evidence of infection As leukocytosis resolved the next morning. Evaluated by physical therapy team who recommended short-term rehab but the patient prefers to go back home and do physical therapy at home. VNA to follow. Noticed to have a positive occult blood in the emergency with no evidence of drop in his hemoglobin level. Developed mild hyponatremia with sodium of 133 at the day of discharge. To be followed with outpatient BMP. CT scan showed an evidence of kidney small cyst. No Abdominal pain or urinary problems reported by the patient. To be followed by PCP for any further investigation needed. Drink plenty of water increase your physical activity Change lactulose to as needed for constipation Start MiraLax and Metamucil Will repeat blood work next week Time Spent with Patient Time attestation: Total time spent providing and/or coordinating discharge services: Discharge coordination time: Greater than 30 minutes Quality: Safe Use of Opioids Does Pt have an Active Cancer Diagnosis on the Problem List?: No Quality: Stroke Does the patient have a stroke diagnosis?: No Physical Exam Vital Signs: Vital Signs: Last Vital Signs Temp 98.0 F 11/05/21 07:51 Pulse 72 11/05/21 07:51 Resp 16 11/05/21 07:51 BP 100/63 11/05/21 07:51 Pulse Ox 96 11/05/21 07:51 BMI result Body Mass Index 19.3 Const: Other: Constitutional : Alert, oriented, not in distress Neck : Normal inspection, Supple Cardiovascular : RRR, no JVP, no lower extremity edema Respiratory : fair bilateral air entry, no crackles, wheezes or rhonchi Gastrointestinal: soft, lax, having regular bowel sounds, Non tender with palpation, right inguinal hernia no tenderness or erythema noted. Skin : Warm, Dry Neurological : Alert & oriented to self and place, No focal deficit , CN 2-12 within normal DS: Data Data Completed and Pending Labs on day of discharge: Laboratory Results - last 24 hr 11/05/21 06:15 Sodium 133 L Potassium 4.5 Chloride 101 Carbon Dioxide 27 Anion Gap 10 L BUN 15 Creatinine 0.83 Estim Creat Clear Calc 55.3 Estimated GFR > 60 Random Glucose 97 Calcium 8.1 L Preliminary micro results at discharge 11/03/21 06:33 Blood Culture - Preliminary Blood - Venous No growth after 48 hours. 11/03/21 06:18 Blood Culture - Preliminary Blood - Venous No growth after [address] scan - abdomen: Radiologist's impression: ITS Impressions KUB X-Ray 11/03/21 04:35 IMPRESSION: Mild colonic stool burden, with stool in the rectum. Chest X-Ray 11/03/21 06:55 IMPRESSION: No radiographic evidence of acute cardiopulmonary disease. Abdomen/Pelvis CT 11/03/21 07:00 IMPRESSION: 1. Technically limited study due to lack of intravenous contrast. Trace amount of simple appearing pericardial effusion is seen. Atherosclerotic coronary arterial disease is noted. 2. Solitary 3 mm nonobstructing right renal radiopaque calculus is noted within the mid lateral calyx. Subtle right renal perinephric stranding is present, may represent superimposed infection. There is however no evidence of any dilated pelvicalyceal system present. Exophytic hypodense 2.3 cm lesion is noted at the inferior pole, most consistent with minimally complicated cyst. An additional 2.4 cm hypodensity at superior pole of the right kidney may represent minimally complicated cyst versus hypodense solid lesion, not optimally characterized. 3. Markedly distended bladder, may represent physiologic changes. 4. Extensive fecal residual from the level of the rectum to the cecum. Subtle perirectal stranding within the presacral space is noted. Early changes of Stercoral colitis may have similar appearance. 5. Large right-sided inguinoscrotal hernia containing cecum, proximal ascending colon and terminal ileum without any CT evidence of superimposed obstruction. 6. Marked diffuse osteopenia and moderate mid to anterior compression deformity of L2 vertebral body, of indeterminate etiology and chronicity. Fleischner guidelines were followed. Discharge Plan Discharge Patient Disposition: Home Health Service Discharge Diagnosis: fecal impaction, severe constipation Physical deconditioning Referrals: Chadd Chang MD [Primary Care Provider] - 1 Week Discharge Medications: New polyethylene glycol 3350 17 gram Powder In Packet 17 g PO DAILY 30 Days 0RF Metamucil Fiber Singles 3.4 gram Powder In Packet 3.4 g PO DAILY 30 Days 0RF Continued multivitamin Tablet 1 tab PO DAILY 0RF losartan 50 mg tablet 1 tab PO DAILY 0RF alendronate 70 mg tablet 1 tab PO SA@0900 0RF lovastatin 40 mg tablet 1 tab DAILY 0RF lorazepam 0.5 mg Tablet 0.5 mg PO DAILY PRN (Reason: Anxiety) 0RF ascorbic acid (vitamin C) 500 mg Tablet 500 mg PO DAILY 0RF pentazocine-naloxone 50-0.5 mg tablet 1 tab PO TID 0RF ferrous sulfate 325 mg (65 mg iron) Tablet 325 mg PO DAILY 0RF docusate sodium [Colace] 100 mg Capsule 100 mg PO TID 0RF furosemide 20 mg tablet 1 tab PO DAILY 0RF metoprolol succinate 25 mg tablet extended release 24 hr 1 tab PO DAILY 0RF carbidopa-levodopa 25-100 mg tablet 1 tab PO TID 0RF selegiline HCl 5 mg capsule 1 cap PO DAILY 0RF sertraline 50 mg tablet 25 mg PO DAILY 0RF ipratropium bromide 21 mcg (0.03 %) spray,non-aerosol 1 spray intranasal QID PRN (Reason: Allergy Symptoms) 0RF Changed lactulose 10 gram/15 mL solution 30 ml PO BID PRN (Reason: Constipation) Qty: 0 0RF Discharge Orders: Discharge Order (Routine); Ordered 11/05/21 Ordered By: Greg Rico Diet: advance to usual diet Activity on Discharge: As tolerated Stand Alone Forms: Patient Portal Discharge page Other Ambulatory Orders: Basic Metabolic Panel (Routine) Timeframe: 1 Week Facility: [facility] - Location: Laboratory Ordered By: Greg Rico Care Plan Goals: Read below Health Concerns: Read below Plan of Treatment: Read below Assessment: you were admitted to the hospital for evaluation of severe constipation. Found to have fecal impaction that was treated with enema and laxatives with good response over the course of hospital stay. You were evaluated by physical therapy team who recommended short-term rehab but you would prefer to go back home and to therapy at home. Drink plenty of water increase your physical activity Change lactulose to as needed for constipation Start MiraLax and Metamucil Will repeat blood work next week
--- NOTE | 2021-11-05 11:26 | W.MHC.F2F ---
Service Date Service Date: 11/05/21 Encounter Date of encounter: 11/05/21 Reasons for Services Signs and symptoms assessed: Physical deconditioning Severe constipation Reason for residential: medication treatment and teach disease management Reason for physical therapy: home safety and mobility and therapeutic exercises Homebound: Leaving the home is medically contraindicated at this time without the asist of a device and/or another person due th the listed conditions above and below. Reason homebound: unsteady gait / fall risk Certification: Based on the above findings, I certify that this patient is confined to the home and needs intermittent residential care, physical therapy and/or speech therapy, or continues to need occupational therapy. The patient is under my care, and I have initiated the establishment of the plan of care. The patient will be followed by a physician who will periodically review the plan of care.
--- NOTE | 2021-11-05 11:39 | MHC.CM.PN ---
Addendum entered by Kimmie Orellana 11/05/21 12:17: PATIENT FAMILY CHOSE [facility] FOR NURSNG AND HOME PHYSICAL THERAPY TO START TOMORROW THEY REQUESTED I HAVE THEM CALL SON OR DTR FOR INITIAL VISIT BY RN /PT TO BE PRESENT WITH THEIR DAD. ALL DISCHARGE PPAER WORK SENT VIA Givey TO THEM D/C SUMMARY , D/C INSTRUCTIONS AND FACE TO FACE DISCHARGE HOME WITH FAMILY WILL STAY WITH HIM UNTIL HE IS STRONGER WITH [facility] TO FOLLOW VNA AND HOME PT 1. EDUCATION ON [facility] SERVCIES FOR ELIEGEABILITY AND SERVICES FOR NOW AND FUTURE 3 INFORMATION ON [facility] PH[employer]IC[employer] GROUP THEY WOULD LIKE PATIENT TO HAVE A YOUNGER DOCTOR HIS DOCTOR IS NEAR [facility]. 4 INFORMATION ON LIFE ALERT OF MEDICAL ALERT DEVICES 5 INFORMATION ON HOW TO OBTAIN RELEASE OF MEDICAL RECORD OR APPLICATION FOR THE [facility] . TRANSPORTATION FAMILY Original Note: nurse case consultant note electronic medical record reviewed along with case discussed with staff nruse and hospitalist . met with patient today and his son Kye . i reviewed with both of them the physical therapy recomendations, and they are not interested , the physican feels he will be able to go home with new referral to the vna for nursing and home physical therapy . which they are accepting of. the two vna agenies i was able to secure is [facility] and [facility] both can start tomorrow 11/06/21 this [id number] was given to patient and his son. they are checking with patients dddddaughter for inptu. also explained about the [facility] care servicws and what they can provide , i gave them the name and encouiraged them to call for intake to see what services he may be eligeable now and possible need in the furture. meals on wheels , software configuration manager housekeeping , patients brother reported he will also speaks with his sister and further discuass with patient . also discussed the medical alert band or watch . discharge plna home with vna for nueisng diagnosis sign symptom management , medication reconcilation and home physical therapy transportation family pcp dr debbie love encouraged him to contact pcp for post hospitla discharge follow up medicare imm 11/04/21 d/c summary face to face and d/c instructiosn sent via [employer] to the a
[2021-11-05 11:58] VITALS: BP 106/53; PULSE 65; RESP 16; TEMP 36.6; O2SAT 98
== END 2021-11-05 15:32 | disposition home health service (06) | DRG 389 ==
LOC: HO.ED 07:59 → HO.EDOVER 10:06 → HO.S3 12:25
PROVIDERS: Emergency Medicine; Admitting Provider Student in an Organized Health Care Education/Training Program; Emergency Provider Emergency Medicine; PCP Internal Medicine; Visit Provider Student in an Organized Health Care Education/Training Program
DX: K56.41 Fecal impaction (principal); I50.32 Chronic diastolic (congestive) heart failure; E87.1 Hypo-osmolality and hyponatremia; R19.5 Other fecal abnormalities; I11.0 Hypertensive heart disease with heart failure; D72.829 Elevated white blood cell count, unspecified; G20 Parkinson's disease; K64.9 Unspecified hemorrhoids; Z20.822 Contact with and (suspected) exposure to COVID-19; Z79.899 Other long term (current) drug therapy
CPT/HCPCS: 36415; 71045; 74018; 74176; 80048; 80076; 81003; 82272; 83605; 85025; 85027; 87040; 87502; 87635; 96365; 97162; 99284; 99285; J1956

== ENCOUNTER 2022-08-13 13:53 | Outpatient (REF) | payer MEDICARE, OTHER, SELFPAY ==
[2022-08-13 16:51] LABS: MANUAL DIFF FLAG NO
[2022-08-13 16:54] LABS: Basophils Percent Auto 0.3 % (0-2); Eosinophils Absolute Auto 0.1 X10*3/uL (0.0-0.4); Eosinophils Percent Auto 1.5 % (0-4); Hematocrit 39.3 % (42.0-52.0); Hemoglobin 12.9 g/dl (14.0-18.0); Imm Gran Abs Auto 0.02 X10*3/uL (0.00-0.03); Imm Gran Pct Auto 0.3 % (0.0-0.4); Lymphocytes Absolute Auto 1.6 X10*3/uL (1.2-4.9); Lymphocytes Percent Auto 20.2 % (20-40); Mean Corpuscular HGB Conc 32.8 g/dl (31.0-36.0); Mean Corpuscular Hemoglobin 31.5 pg (27.0-33.0); Mean Corpuscular Volume 95.9 fL (80.0-98.0); Mean Platelet Volume 11.1 fL (9.4-12.4); Monocytes Absolute Auto 0.5 X10*3/uL (0.1-1.2); Monocytes Percent Auto 6.5 % (2-11); Neutrophils Absolute Auto 5.7 x10*3/uL (2.0-8.3); Neutrophils Percent Auto 71.2 % (45-73); Platelet Count 226 X10*3/uL (160-400); Red Cell Distribution Width 13.4 % (11.0-16.0)
[2022-08-13 17:13] LABS: Iron 108 mcg/dL (45-160); Percent Iron Saturation 36 % (15-50); Total Iron Binding Capacity 301 mcg/dL (228-428); Unsaturated Iron Binding 193 ug/dL
[2022-08-13 17:38] LABS: Ferritin 65 ng/mL (20-250); Folate 13.5 ng/mL (> or = 4.0); Vitamin B12 495 pg/mL (200-900)
== END 2022-08-13 13:54 | disposition home or self-care (01) ==
LOC: HO.HMGCLDS 13:53
PROVIDERS: PCP Internal Medicine; Visit Provider Internal Medicine
DX: D64.9 Anemia, unspecified (principal)
CPT/HCPCS: 36415; 82607; 82728; 82746; 83540; 85025

== ENCOUNTER 2023-07-19 15:39 | Emergency (ER) | payer MEDICARE, OTHER, SELFPAY ==
[2023-07-19 15:59] VITALS: BP 187/106; PULSE 69; RESP 18; TEMP 36; O2SAT 96; BMI 21.9
--- NOTE | 2023-07-19 16:18 | ED_ITS ---
HPI - General Adult General Chief complaint: Wound/Laceration Stated complaint: lac along vein, sent over by urgent care Time Seen by Provider: 07/19/23 19:41 Source: patient Mode of arrival: ambulatory Limitations: no limitations History of Present Illness HPI narrative: 88 yold male with pmh of parkisons and hyponatremia presents tot he ED for right hand laceration caused putting his hand inbetween couches while stumbling. there was metal on the couch. patient deneis falling to the ground, hitting head, loss of conscousness, chest pain, shortness of breath, abdominal pain, or pain in extremities. patient was given tdap shot at urgent care. Related Data Home Medications Medication Instructions Recorded Confirmed alendronate 70 mg tablet 1 tab PO SA@0900 11/03/21 11/03/21 ascorbic acid (vitamin C) 500 mg 500 mg PO DAILY 11/03/21 11/03/21 tablet carbidopa 25 mg-levodopa 100 mg 1 tab PO TID 11/03/21 11/03/21 tablet docusate sodium 100 mg capsule 100 mg PO TID 11/03/21 11/03/21 (Colace) ferrous sulfate 325 mg (65 mg 325 mg PO DAILY 11/03/21 11/03/21 iron) tablet furosemide 20 mg tablet 1 tab PO DAILY 11/03/21 11/03/21 ipratropium bromide 21 mcg (0.03 1 spray intranasal QID PRN Allergy 11/03/21 11/03/21 %) nasal spray Symptoms lorazepam 0.5 mg tablet 0.5 mg PO DAILY PRN Anxiety 11/03/21 11/03/21 losartan 50 mg tablet 1 tab PO DAILY 11/03/21 11/03/21 lovastatin 40 mg tablet 1 tab DAILY 11/03/21 11/03/21 metoprolol succinate 25 mg 1 tab PO DAILY 11/03/21 11/03/21 tablet,extended release 24 hr multivitamin 1 tab PO DAILY 11/03/21 11/03/21 pentazocine 50 mg-naloxone 0.5 mg 1 tab PO TID 11/03/21 11/03/21 tablet selegiline HCl 5 mg capsule 1 cap PO DAILY 11/03/21 11/03/21 sertraline 50 mg tablet 25 mg PO DAILY 11/03/21 11/03/21 Previous Rx's Medication Instructions Recorded lactulose 10 gram/15 mL oral 30 ml PO BID PRN Constipation #0 mL 11/05/21 solution polyethylene glycol 3350 17 gram 17 g PO DAILY 30 days 11/05/21 oral powder packet psyllium husk (aspartame) 3.4 gram 3.4 g PO DAILY 30 days 11/05/21 oral powder packet (Metamucil Fiber Singles) cephalexin 500 mg capsule 500 mg PO Q12H 7 days #14 caps 07/19/23 Allergies Allergy/AdvReac Type Severity Reaction Status Date / Time No Known Allergies Allergy Verified 11/03/21 02:13 Review of Systems 2 Review of Systems: right hand laceration Yes all other systems are reviewed and are negative [facility] Past Medical History Medical History (Updated 07/20/23 @ 00:00 by José Dela Cruz) Collar bone fracture Compression fracture of body of thoracic vertebra Osteoporosis Constipation Depression Anemia Parkinsons disease High cholesterol Hypertension Positive occult stool blood test Surgical History History of kyphoplasty Social History Social History Household Members: None Household Members Other:: last week. family has been staying with him. Housing: House Do you presently have visiting nurse or other home services: No Patient Tobacco Use Status: Never used Tobacco Smoked in Last 30 Days: No Use of substances other than those prescribed or required for medical reasons: No Any prior treatment program specific to substance use: No Advance Directives: No Advance Directives Information Provided: No Physical Exam ED Vital Signs: Vital Signs - 24 hr 07/19/23 15:59 Temperature 96.8 F Pulse Rate 69 Respiratory Rate 18 Blood Pressure 187/106 H Pulse Oximetry 96 Oxygen Delivery Method Room Air BMI result Body Mass Index 21.9 Const General: cooperative, healthy appearing, comfortable, no acute distress, well developed, alert, awake and Physically active Orientation/consciousness: oriented to person, oriented to place, oriented to time and patient oriented x3 HENMT Head: Yes normal to inspection, Yes No palpable skull fracture present, Yes normocephalic, Yes atraumatic and No abrasion Ears: hearing grossly normal bilaterally, external ears normal, TM's normal bilaterally, TM normal on the right, TM normal on the left, EAC's normal, mastoids normal and no periauricular adenopathy Eyes General: appearance normal, both eyes and all related structures Neck Neck: Yes normal visual inspection, Yes full ROM, Yes no lymphadenopathy, Yes no meningeal signs, Yes trachea midline, Yes supple, No anterior neck swelling and No tender Chest Chest palpation & inspection: normal inspection of the chest Resp Effort & Inspection: normal respiratory effort and able to speak in complete sentences Auscultation: clear to auscultation bilaterally Cardio Jugular venous distension: no JVD Heart sounds: S1 normal heart sound present and S2 normal heart sound present GI Inspection: Yes normal to inspection Palpation (GI): Soft to palpation, not firm, nontender, no guarding and not rigid General: Yes no CVA tenderness Back/Spine/Pelvis Back: no CVA tenderness and No back tenderness Skin Other: Right hand laceration General skin exam: no rashes or lesions noted, elasticity normal and turgor normal Neuro General: oriented to person, oriented to place, oriented to time, patient oriented x3, gait normal, tone normal, moves all extremities, Normal light touch and pain sensation, no meningeal signs, no focal motor deficits, CN's II-XI intact bilaterally and normal sensation to monofilament Extrem General: Yes normal to inspection and Yes full ROM Hand/finger images: 2 1. superficial laceration. negative for tenderness, ecchymosis, or crepitus. bleeding controlled. negative for signs of nerve or tendon injury. motor, neuro, and vascular exam is intact. Psych Appearance: grossly normal, well kempt and not disheveled Course Course Course Narrative: RME; 88-year-old male presents ED for right hand laceration sent from urgent Care for repair. Received tetanus shot. Patient has complete range of motion of fingers. Capillary refill is intact. Pulses intact. Will be evaluated [facility] Medications Administered Discontinued Medications Generic Name Dose Route Start Last Admin Trade Name Freq PRN Reason Stop Dose Admin Lidocaine HCl 5 ml 07/19/23 19:41 07/19/23 20:21 Lidocaine Hcl 1 % Mpf 5 Ml Vial INFILTRATI 07/19/23 19:42 5 ml ONCE ONE Administration Lidocaine HCl 5 ml 07/19/23 19:41 07/19/23 20:20 Lidocaine Hcl 1 % Mpf 5 Ml Vial INFILTRATI 07/19/23 19:42 5 ml ONCE ONE Administration Medical Decision Making Medical Decision Making [facility] Narrative: Ze uriarte with pmh of parkinsoninan presents to the ED forright hand laceration while trying to move in between couch. patient cut right hand on metal parl of couch. Wound cleaned with sterile saline Betadine iodine. Linear lacerations. 7 mL of lidocaine 1% placed into wound. nylon size 3 sutures used. 13 sutures placed. will discharge with antiiotics. negatie for signs of tendon nerve injury. no xrays needed. no tenderness, deformity, crepitus, or ecchymosis. Differential Diagnosis Differential Diagnoses: The differential diagnosis associated with the presentation includes (laceration) Admission/Observation Consideration of admission/observation: Escalation of care including admission/observation considered Independent Historian Clinical information obtained from an independent historian. History obtained from or confirmed by: Other ([facility]) Prescription Management I considered prescription management with: Antibiotic Discharge Plan Discharge Clinical Impression: Laceration Patient Disposition: Home, Self-Care Instructions: Laceration (ED) Additional Instructions: To the ED immediately for any redness swelling, pus discharge, foul odor, inability to move fingers extremities, bluish black discoloration, fever, chills, or any other concerning symptoms. Sutures can be removed in 10 days at any urgent Care, ED, or primary care provider. Please follow-up with primary care provider. He will be discharged with antibiotics to prevent infection. Prescriptions: New cephalexin 500 mg capsule 500 mg PO Q12H 7 Days Qty: 14 0RF No Action multivitamin Tablet 1 tab PO DAILY losartan 50 mg tablet 1 tab PO DAILY alendronate 70 mg tablet 1 tab PO SA@0900 lovastatin 40 mg tablet 1 tab DAILY lorazepam 0.5 mg Tablet 0.5 mg PO DAILY PRN (Reason: Anxiety) ascorbic acid (vitamin C) 500 mg Tablet 500 mg PO DAILY pentazocine-naloxone 50-0.5 mg tablet 1 tab PO TID ferrous sulfate 325 mg (65 mg iron) Tablet 325 mg PO DAILY docusate sodium [Colace] 100 mg Capsule 100 mg PO TID furosemide 20 mg tablet 1 tab PO DAILY metoprolol succinate 25 mg tablet extended release 24 hr 1 tab PO DAILY carbidopa-levodopa 25-100 mg tablet 1 tab PO TID selegiline HCl 5 mg capsule 1 cap PO DAILY sertraline 50 mg tablet 25 mg PO DAILY ipratropium bromide 21 mcg (0.03 %) spray,non-aerosol 1 spray intranasal QID PRN (Reason: Allergy Symptoms) polyethylene glycol 3350 17 gram Powder In Packet 17 g PO DAILY 30 Days 0RF Metamucil Fiber Singles 3.4 gram Powder In Packet 3.4 g PO DAILY 30 Days 0RF lactulose 10 gram/15 mL solution 30 ml PO BID PRN (Reason: Constipation) Qty: 0 0RF Interventions: ED Discharge Assessment Last Done: 07/19/23 21:46 Discharge Date/Time: 07/19/23 21:01 Print Language: Ugandan
[2023-07-19] MEDS: Lidocaine HCl 1 % MPF 5 ML VIAL INFILTRATI ×2 (20:20→20:21)
[2023-07-19 20:55] VITALS: BP 126/78; PULSE 78; RESP 18; O2SAT 98
== END 2023-07-19 21:01 | disposition home or self-care (01) ==
PROVIDERS: Emergency Provider Internal Medicine; PCP Internal Medicine
DX: S61.411A Laceration without foreign body of right hand, initial encounter (principal); W26.9XXA Contact with unspecified sharp object(s), initial encounter; Y93.9 Activity, unspecified; Y92.9 Unspecified place or not applicable; Y99.8 Other external cause status; Z79.899 Other long term (current) drug therapy
CPT/HCPCS: 99284

== ENCOUNTER 2023-09-29 03:13 | Emergency (ER) | payer MEDICARE, OTHER, SELFPAY ==
--- NOTE | ~2023-09-29 | CT_ITS ---
EXAMINATION: CT ABDOMEN AND PELVIS WITHOUT CONTRAST CLINICAL INFORMATION: Reason for Exam Lower abd pain , rectal pain with right inguinal COMPARISON: 11/03/2021 TECHNIQUE: Multidetector volumetric imaging was performed from the superior aspect of the liver through the pubic symphysis. Sagittal and coronal reformatted images were obtained on the technologist's workstation. This CT examination was performed using dose optimization techniques as appropriate, variously including the following: *Automated exposure control *Adjustment of mA and/or kV according to patient size (this includes techniques or standardized protocols for targeted exams where dose is matched to indication/reason for exam; i.e. extremities or head) *Use of iterative reconstruction technique DLP: 440 mGy-cm FINDINGS: LUNG BASES: Mild bibasilar atelectasis. Small pericardial effusion. LIVER, GALLBLADDER, AND BILIARY TREE: The liver is normal in size, shape, and attenuation. No focal hepatic lesion or biliary ductal dilatation is identified on this noncontrast exam. Gallbladder is not well assessed due to motion artifact. PANCREAS: Mildly atrophic, otherwise not well assessed due to motion artifact. SPLEEN: Grossly unremarkable. ADRENAL GLANDS: Grossly unremarkable. KIDNEYS AND URETERS: No hydronephrosis or obstructing calculus bilaterally. Tiny mid right renal calculus. Medial right renal cyst noted, for which no follow-up is recommended. BLADDER: Partially distended, grossly unremarkable. GASTROINTESTINAL TRACT: No convincing evidence for bowel obstruction. Moderate stool is present throughout the colon, and a large amount of stool is also present in the rectum. There is perirectal stranding and mild mural prominence, raising concern for stercoral colitis. No free air or significant free fluid is seen, with assessment limited in some regions due to motion artifact. ABDOMINAL WALL: Right inguinal hernia contains the distalmost small bowel, cecum, and proximal ascending colon. LYMPH NODES: No lymphadenopathy is seen, though assessment is limited in the absence of intravenous contrast. VASCULAR: There is atherosclerotic calcification along the aorta and iliac arteries. PELVIC VISCERA: Unremarkable. OSSEOUS STRUCTURES: Superior endplate height loss at L2 is unchanged from prior. Redemonstrated vertebral body cement at T11. CT/CT abdomen pelvis wo IV con IMPRESSION: 1. Large amount of stool in the rectum with perirectal stranding and mild mural prominence, concerning for stercoral colitis. 2. Right inguinal hernia containing the distalmost small bowel, cecum, and proximal ascending colon. No convincing bowel obstruction. 3. Small pericardial effusion.
[2023-09-29 03:21] VITALS: BP 156/80; PULSE 97; O2SAT 95
[2023-09-29 03:31] VITALS: BP 138/60; PULSE 71; RESP 18; TEMP 36.6; O2SAT 99; BMI 20.1
--- NOTE | 2023-09-29 05:12 | ED_ITS ---
HPI - Abdominal Pain General Chief Complaint: Abdominal Pain Stated Complaint: diarrhea Time Seen by Provider: 09/29/23 05:10 Source: patient Mode of arrival: ambulatory Limitations: no limitations History of Present Illness HPI narrative: Patient's history of chronic constipation with large right inguinal hernia with history of Parkinson disease was constipated for 2 days started on Metamucil and MiraLax now having loose bowels and pain in the rectal area also does have a large inguinal hernia which is same as before with slight tenderness no nausea no vomiting no fever no chills patient feel pain in the rectum Related Data Home Medications ?Medication ?Instructions ?Recorded ?Confirmed alendronate 70 mg tablet 1 tab PO SA@0900 11/03/21 11/03/21 ascorbic acid (vitamin C) 500 mg 500 mg PO DAILY 11/03/21 11/03/21 tablet carbidopa 25 mg-levodopa 100 mg 1 tab PO TID 11/03/21 11/03/21 tablet docusate sodium 100 mg capsule 100 mg PO TID 11/03/21 11/03/21 (Colace) ferrous sulfate 325 mg (65 mg 325 mg PO DAILY 11/03/21 11/03/21 iron) tablet furosemide 20 mg tablet 1 tab PO DAILY 11/03/21 11/03/21 ipratropium bromide 21 mcg (0.03 1 spray intranasal QID PRN Allergy 11/03/21 11/03/21 %) nasal spray Symptoms lorazepam 0.5 mg tablet 0.5 mg PO DAILY PRN Anxiety 11/03/21 11/03/21 losartan 50 mg tablet 1 tab PO DAILY 11/03/21 11/03/21 lovastatin 40 mg tablet 1 tab DAILY 11/03/21 11/03/21 metoprolol succinate 25 mg 1 tab PO DAILY 11/03/21 11/03/21 tablet,extended release 24 hr multivitamin 1 tab PO DAILY 11/03/21 11/03/21 pentazocine 50 mg-naloxone 0.5 mg 1 tab PO TID 11/03/21 11/03/21 tablet selegiline HCl 5 mg capsule 1 cap PO DAILY 11/03/21 11/03/21 sertraline 50 mg tablet 25 mg PO DAILY 11/03/21 11/03/21 Previous Rx's ?Medication ?Instructions ?Recorded lactulose 10 gram/15 mL oral 30 ml PO BID PRN Constipation #0 mL 11/05/21 solution polyethylene glycol 3350 17 gram 17 g PO DAILY 30 days 11/05/21 oral powder packet psyllium husk (aspartame) 3.4 gram 3.4 g PO DAILY 30 days 11/05/21 oral powder packet (Metamucil Fiber Singles) cephalexin 500 mg capsule 500 mg PO Q12H 7 days #14 caps 07/19/23 Allergies Allergy/AdvReac Type Severity Reaction Status Date / Time No Known Allergies Allergy Verified 09/29/23 03:37 Review of Systems Review of Systems Yes all other systems are reviewed and are negative [facility] Past Medical History Attestation statement: The following information was validated with the patient. Medical History (Updated 09/29/23 @ 07:06 by Nigel Vilchis MD) Collar bone fracture Compression fracture of body of thoracic vertebra Osteoporosis Constipation Depression Anemia Parkinsons disease High cholesterol Hypertension Positive occult stool blood test Surgical History History of kyphoplasty Social History Social History Household Members: None Household Members Other:: last week. family has been staying with him. Housing: House Do you presently have visiting nurse or other home services: No Patient Tobacco Use Status: Never used Tobacco Advance Directives: No Advance Directives Information Provided: Yes Physical Exam ED Vital Signs: Vital Signs - 24 hr 09/29/23 03:31 09/29/23 05:50 09/29/23 07:11 Temperature 98 F 97.7 F 97.7 F Pulse Rate 71 68 67 Respiratory Rate 18 16 16 Blood Pressure 138/60 144/61 H 145/61 H Pulse Oximetry 99 98 97 Oxygen Delivery Method Room Air Room Air Room Air 09/29/23 07:20 Temperature 97.7 F Pulse Rate 67 Respiratory Rate 16 Blood Pressure 145/61 H Pulse Oximetry 97 Oxygen Delivery Method Room Air BMI result Body Mass Index 20.1 Appearance: Alert. Oriented X3. No acute distress. Eyes: No pallor no icterus ENT: Pharynx normal. Oral Mucosa moist Neck: Normal inspection. Neck supple. CVS: Normal heart rate and rhythm. Pulses normal. Respiratory: No respiratory distress. Equal air entry bilateral, no wheezing/rales/rhonchi Abdomen: Soft and nontender. Bowel sounds are present, no mass palpable, no CVA tenderness large mild tender reducible right direct inguinal hernia rectal: Large amount of stool manual disimpaction done Skin: Skin warm and dry. Normal skin color. Normal skin turgor. Extremities: No lower extremity edema. No calf tenderness Neuro: Oriented X 3. No motor deficit. Intention tremors+ Medical Decision Making Medical Decision Making [facility] Narrative: After manual disimpaction patient had a good bowel movement in the ER feeling much better will discharge patient home Differential Diagnosis Differential Diagnoses: The differential diagnosis associated with the presentation includes Fecal impaction/incarcerated inguinal hernia Lab Data [facility] Lab Attestation statement: I reviewed the patient's lab results. 09/29/23 05:50 09/29/23 05:50 Labs: Lab Results 09/29/23 Range/Units 05:50 WBC 13.5 H (4.8-10.8) X10*3/uL RBC 3.85 L (4.60-5.80) X10*6/uL Hgb 12.4 L (14.0-18.0) g/dl Hct 37.1 L (42.0-52.0) % MCV 96.4 (80.0-98.0) fL MCH 32.2 (27.0-33.0) pg MCHC 33.4 (31.0-36.0) g/dl RDW 14.3 (11.0-16.0) % Plt Count 194 (160-400) X10*3/uL MPV 10.8 (9.4-12.4) fL Immature Gran % (Auto) 0.3 (0.0-0.4) % Neut % (Auto) 85.9 H (45-73) % Lymph % (Auto) 6.4 L (20-40) % [place] % (Auto) 7.2 (2-11) % Eos % (Auto) 0.1 (0-4) % Baso % (Auto) 0.1 (0-2) % Lymph # (Auto) 0.9 L (1.2-4.9) X10*3/uL [place] # (Auto) 1.0 (0.1-1.2) X10*3/uL Eos # (Auto) 0.0 (0.0-0.4) X10*3/uL Baso # (Auto) 0.0 (0.0-0.2) X10*3/uL Abs Immat Gran (auto) 0.04 H (0.00-0.03) X10*3/uL Absolute Neuts (auto) 11.6 H (2.0-8.3) x10*3/uL Absolute Nucleated RBC 0.000 (0.0-0.012) X10*3/uL Nucleated RBC % (auto) 0.0 (0.0-0.2) /100WBC Sodium 136 (135-145) mmol/L Potassium 4.4 (3.3-5.1) mmol/L Chloride 101 (96-108) mmol/L Carbon Dioxide 27 (22-29) mmol/L Anion Gap 12 (12-20) BUN 31 H (9-16) mg/dL Creatinine 1.10 (0.5-1.4) mg/dL Estim Creat Clear Calc 44.1 Estimated GFR > 60 Random Glucose 96 (60-115) mg/dL Lactic Acid 0.9 (0.5-2.0) mmol/L Calcium 9.1 D (8.4-10.2) mg/dL Total Bilirubin 0.8 (0.0-1.0) mg/dL AST 29 (5-37) U/L ALT < 5 (0-40) U/L Alkaline Phosphatase 66 (39-117) U/L Total Protein 6.8 (6.5-8.0) g/dL Albumin 3.5 (3.5-5.0) g/dL Independent Interpretation I performed an independent interpretation of an: CT Scan Radiology Impression Discussion of test interpretation with radiology: I have reviewed the radiologist's reading. Discharge Plan Discharge Clinical Impression: Constipation Patient Disposition: Home, Self-Care Instructions: Constipation (ED) Additional Instructions: Continue stool softener as prescribed by her PCP Drink plenty of fluids Prescriptions: No Action multivitamin Tablet 1 tab PO DAILY losartan 50 mg tablet 1 tab PO DAILY alendronate 70 mg tablet 1 tab PO SA@0900 lovastatin 40 mg tablet 1 tab DAILY lorazepam 0.5 mg Tablet 0.5 mg PO DAILY PRN (Reason: Anxiety) ascorbic acid (vitamin C) 500 mg Tablet 500 mg PO DAILY pentazocine-naloxone 50-0.5 mg tablet 1 tab PO TID ferrous sulfate 325 mg (65 mg iron) Tablet 325 mg PO DAILY docusate sodium [Colace] 100 mg Capsule 100 mg PO TID furosemide 20 mg tablet 1 tab PO DAILY metoprolol succinate 25 mg tablet extended release 24 hr 1 tab PO DAILY carbidopa-levodopa 25-100 mg tablet 1 tab PO TID selegiline HCl 5 mg capsule 1 cap PO DAILY sertraline 50 mg tablet 25 mg PO DAILY ipratropium bromide 21 mcg (0.03 %) spray,non-aerosol 1 spray intranasal QID PRN (Reason: Allergy Symptoms) polyethylene glycol 3350 17 gram Powder In Packet 17 g PO DAILY 30 Days 0RF Metamucil Fiber Singles 3.4 gram Powder In Packet 3.4 g PO DAILY 30 Days 0RF lactulose 10 gram/15 mL solution 30 ml PO BID PRN (Reason: Constipation) Qty: 0 0RF cephalexin 500 mg capsule 500 mg PO Q12H 7 Days Qty: 14 0RF Interventions: ED Discharge Assessment Last Done: 09/29/23 07:20 Discharge Date/Time: 09/29/23 07:21 Print Language: Sami
[2023-09-29 05:50] VITALS: BP 144/61; PULSE 68; RESP 16; TEMP 36.5; O2SAT 98
[2023-09-29 05:54] LABS: MANUAL DIFF FLAG NO
[2023-09-29 05:59] LABS: Basophils Percent Auto 0.1 % (0-2); Eosinophils Percent Auto 0.1 % (0-4); Hematocrit 37.1 % (42.0-52.0); Hemoglobin 12.4 g/dl (14.0-18.0); Imm Gran Abs Auto 0.04 X10*3/uL (0.00-0.03); Imm Gran Pct Auto 0.3 % (0.0-0.4); Lymphocytes Absolute Auto 0.9 X10*3/uL (1.2-4.9); Lymphocytes Percent Auto 6.4 % (20-40); Mean Corpuscular HGB Conc 33.4 g/dl (31.0-36.0); Mean Corpuscular Hemoglobin 32.2 pg (27.0-33.0); Mean Corpuscular Volume 96.4 fL (80.0-98.0); Mean Platelet Volume 10.8 fL (9.4-12.4); Monocytes Percent Auto 7.2 % (2-11); Neutrophils Absolute Auto 11.6 x10*3/uL (2.0-8.3); Neutrophils Percent Auto 85.9 % (45-73); Platelet Count 194 X10*3/uL (160-400); Red Blood Count 3.85 X10*6/uL (4.60-5.80); Red Cell Distribution Width 14.3 % (11.0-16.0); White Blood Count 13.5 X10*3/uL (4.8-10.8)
[2023-09-29 06:12] LABS: Lactic Acid 0.9 mmol/L (0.5-2.0)
[2023-09-29 06:32] LABS: Anion Gap 12 (12-20)
[2023-09-29 06:40] LABS: Alanine Aminotransferase < 5 U/L (0-40); Albumin Level 3.5 g/dL (3.5-5.0); Alkaline Phosphatase 66 U/L (39-117); Aspartate Amino Transferase 29 U/L (5-37); Bilirubin Total 0.8 mg/dL (0.0-1.0); Blood Urea Nitrogen 31 mg/dL (9-16); Calcium 9.1 mg/dL (8.4-10.2); Carbon Dioxide 27 mmol/L (22-29); Chloride 101 mmol/L (96-108); Creatinine Clr Calc Pharmacy 44.1; Estimated Glomerular Filt Rate > 60; Glucose Random 96 mg/dL (60-115); Potassium 4.4 mmol/L (3.3-5.1); Sodium 136 mmol/L (135-145); Total Protein 6.8 g/dL (6.5-8.0)
[2023-09-29 07:11] VITALS: BP 145/61; PULSE 67; RESP 16; TEMP 36.5; O2SAT 97
[2023-09-29 07:20] VITALS: BP 145/61; PULSE 67; RESP 16; TEMP 36.5; O2SAT 97
== END 2023-09-29 07:21 | disposition home or self-care (01) ==
PROVIDERS: Emergency Provider Internal Medicine; PCP Internal Medicine
DX: K59.00 Constipation, unspecified (principal); K40.90 Unilateral inguinal hernia, without obstruction or gangrene, not specified as recurrent; I10 Essential (primary) hypertension; G20.A1 Parkinson's disease without dyskinesia, without mention of fluctuations
CPT/HCPCS: 36415; 74176; 80053; 83605; 85025; 99284

== ENCOUNTER 2024-11-22 14:21 | Outpatient (AMB) | payer MEDICARE, OTHER, SELFPAY ==
--- NOTE | 2024-11-22 14:28 | MHC.PC.OV ---
Vital Signs 11/22/24 14:32 Height 5 ft 5.35 in Weight 134 lb BMI 22.1 BP 158/73 H Respiration 14 Pulse 66 Pulse Source Pulse Oximeter Temp 97.3 F Temp Source Temporal Artery Scan Pulse Oximetry (%) 99 Oxygen Delivery Method Room Air Intake Visit Reasons: establish care Business Performance Advisor Required: No Accompanied by: Son Allergies No Known Allergies Allergy (Verified 11/22/24 14:29) Tobacco use date assessed: 11/22/24 Fall risk assessment: No Falls in past year Last assessed Fall Risk: 11/22/24 Dental Screening Dental Screen Date: 11/22/24 Did you have a dental visit in the last 12 months?: Yes Did you have a dental problem in the last 6 months where you did not have access to dental care?: No Was dental information given to patient?: Patient has dentist (partial dentures) [facility] Medical History (Updated 11/25/24 @ 14:52 by Arsenio Guadarrama MD) Collar bone fracture Compression fracture of body of thoracic vertebra Osteoporosis Constipation Depression Anemia Parkinsons disease High cholesterol Hypertension Positive occult stool blood test Surgical History History of kyphoplasty Social History (Updated 11/22/24 @ 14:40 by RAMÓN Guerra) Household Members: None Household Members Other:: last week. family has been staying with him. Housing: House Do you presently have visiting nurse or other home services: No Alcohol intake: current Alcohol intake frequency: does not drink Patient Tobacco Use Status: Former Tobacco user service: No Current occupational status: retired Cognitive needs: Yes (cane ) Hearing needs: No Vision needs: Yes (rx glasses) Questionnaire PHQ-9 Over the last 2 weeks, how often have you been bothered by any of the following problems? 1. Little interest or pleasure in doing things: not at all 2. Feeling down, depressed, or hopeless: not at all 3. Trouble falling or staying asleep, or sleeping too much: not at all 4. Feeling tired or having little energy: not at all 5. Poor appetite or overeating: not at all 6. Feeling bad about yourself - or that you are a failure or have let yourself or your family down: not at all 7. Trouble concentrating on things, such as reading the newspaper or watching television: not at all 8. Moving or speaking so slowly that other people could have noticed. Or the opposite - being so fidgety or restless that you have been moving around a lot more than usual: not at all 9. Thoughts that you would be better off or of hurting yourself in some way: not at all Total score: 0 Source: Developed by Drs. Gustavo Troy, Samia Naranjo, Kush Rogers and colleagues, with an educational jag from [employer]. Thrive Questionnaire Date Thrive assessed: 11/22/24 I am a: Patient What is your living situation today?: I have a steady place to live Within the past 12 months, did the food you bought not last and you didn't have the money to get more?: Never true Within the past 12 months, did you worry whether your food would run out before you got money to buy more?: Never true Do you have trouble paying for medicines?: No Do you have trouble getting transportation to medical appointments?: No Do you have trouble paying your heating and electricity bill?: No Do you have trouble taking care of your child, family member or friend?: No Do you have trouble with day-to-day activities such as bathing, preparing meals, shopping, managing finances, etc.?: No Are you currently unemployed and looking for a job?: No Are you interested in more education?: No Please select the resources that you would like help with: None THRIVE Score: 0 AUDIT C Alcohol Use Questionnaire (AUDIT-C) 1. How often do you have a drink containing alcohol?: Never 3. How often do you have six or more drinks on one occasion?: Never Total Score: 0 RAVINDER-7 AMB Questionnaire RAVINDER-7 Date RAVINDER - 7 assessed: 11/22/24 Feeling nervous, anxious, or on edge: 0 = Not at all Not being able to stop or control worryin = Not at all Worrying too much about different things: 0 = Not at all Trouble relaxin = Not at all Being so restless that it is hard to sit still: 0 = Not at all Becoming easily annoyed or irritable: 0 = Not at all Feeling afraid as if something awful might happen: 0 = Not at all Total RAVINDER-7 score (0-4 normal; 5-9 mild; 10-14 moderate; 15-21 severe): 0 Source: Developed by Drs. Gustavo Troy, Samia Naranjo, Kush Rogers and colleagues, with an educational jag from [employer]. Physical exam (Primary Care) Vital Signs: Last Vital Signs Temp 97.3 F 11/22/24 14:32 Pulse 66 11/22/24 14:32 Resp 14 11/22/24 14:32 BP 158/73 H 11/22/24 14:32 Pulse Ox 99 11/22/24 14:32 Oxygen Delivery Method Room Air 11/22/24 14:32 BMI result Body Mass Index 22.1 Tobacco/Smoking Status: Tobacco use Status Tobacco use date assessed 11/22/24 11/22/24 14:32 Patient Tobacco Use Status Former Tobacco user 11/22/24 14:42 PHQ-9: PHQ-9 Score PHQ-9: Total score 0 11/22/24 14:32 Thrive Assessment: Date of Thrive Assessment Date Thrive assessed 11/22/24 11/22/24 14:32 Coding Level of Care Code New Pt Level 4 (40147) Complex EM visit Add On G2211 Diagnoses Hypertension I10 Assessment & Plan Assessment & Plan (1) Hypertension: Code(s): I10 - Essential (primary) hypertension Category: Medical Plan: History of Present Illness - The patient is an 89-year-old male presenting with chronic constipation and hernia. - The patient reports chronic constipation, characterized by two to four-day intervals between bowel movements. Current management includes daily Metamucil and a stool softener such as Colace, which helps occasionally without significant straining. - The patient has a hernia that has persisted for around 3? years. It is located on the right side and progresses into the scrotum area. Movements of the hernia have stabilized recently with no pain associated. Surgery was deemed non-essential due to age considerations, and the patient has chosen to live with the condition. - A history of skin cancer and Parkinson's Disease is noted, with respective specialist care and oversight. Social History - Lives independently at home. - Family support includes children who handle shopping and meal provisions. - Occasionally accompanies family for grocery shopping. - Consumes meals primarily brought in by family but prepares his own breakfast and lunch. 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 - Reports independence with activities of daily living, with no fall risks or need for assistance. Review of Systems - Gastrointestinal: Reports constipation; denies daily bowel movements. - Musculoskeletal: Denies pain related to hernia. - Dermatological: Acknowledges history of skin cancer. Physical Exam General: Cooperative and healthy appearing Nutritional Appearance: Well nourished Orientation/consciousness: Patient oriented x3 Limitations: No limitations Head: Normal to inspection General: Appearance normal, both eyes and all related structures Neck: Normal visual inspection Chest: Normal palpation of entire chest wall Respiratory: N ormal respiratory effort Neurology: Patient oriented x3, no fall risks, independent in activities of daily living Results Plan 1. Chronic Constipation - Continue using Metamucil and stool softeners as needed. - Monitor symptoms and adjust management as necessary. 2. Hernia - No immediate intervention required due to lack of pain. - Scheduled follow-ups every three months to monitor. Discussion Notes During today's consultation, the patient and I discussed his ongoing management for chronic constipation with a continuation of Metamucil and stool softeners. I advised it is acceptable for bowel movements to occur every two to four days as long as discomfort and excessive straining are avoided. We reviewed his decision regarding the long-standing hernia, opting for conservative management given its non-painful status, emphasizing the low interactional risk given current stability. After confirming with the patient, arrangements were made for follow-up visits every three months for monitoring purposes and reinforcing the understanding to seek care if the hernia becomes painful or causes discomfort. Additionally, we confirmed the continuity of care with the specialists for his skin condition and Parkinson's Disease. Patient Instructions - Continue taking Metamucil daily and your prescribed stool softener as needed. - Observe hernia for any changes in size or discomfort, and report if these occur. - Continue with routine check-ups with your skin and Parkinson's specialists. - Follow up with me every three months to monitor your hernia and constipation. Medications: Discontinued cephalexin Discontinued Reason: Patient Completed Course 500 mg PO Q12H 7 days 14 caps 0RF
[2024-11-22 14:32] VITALS: BP 158/73; PULSE 66; RESP 14; TEMP 36.3; O2SAT 99; BMI 22.1
--- OUTSIDE RECORDS SUMMARY | 2024-11-22 17:20 | XMS_ITS | Patient Health Record ---
Author Organization [facility] Address [address] [place] [address] Care Team Providers Care Educational Program Assistant Name Role Phone Chadd Chang MD Primary Care Provider UnavailSonia Em Unavailable [phone] Allergies No Known Allergies Reason For Referral No Information Medications Medication SIG (Take, Route, Frequency, Duration) Notes Start Date End Date Status Vitamin C 500 MG as directed Orally Active Stool Softener Activ e Ferrous Sulfate 325 (65 Fe) MG 1 tablet Orally Once a day for 30 day(s) Active Furosemide 20 MG 1 tablet Orally Once a day for 30 day(s) Active Talwin Active Metoprolol Succinate 40 mg Active Multivitamin Active Sertraline HCl 50 MG 1 tablet Orally Onc e a day for 30 day(s) Active Alendronate Sodium 70 MG 1 tablet 30 min utes before the first food, beverage or medicine of the day with plain water Orally for 30 day(s) Active LORazepam 0.5 MG 1 tablet at bedtime as needed Orally Once a day Active Carbidopa-Levodopa 25-100 MG 1 tablet as needed Orally Two times a Week for 30 day(s) Active Losartan Potassium 50 MG 1 tablet Orally Once a day for 30 day(s) Active Social History Tobacco Use: Social History Observation Description Date Details (start date - stop date) Never Smoker NA - NA Alcohol Screen Question Answer Notes Did you have a drink containing alcohol in the p ast year? No Points 0 Interpretation Negative Tobacco use other than smoking: Question Answer Notes Are you an other tobacco user? 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) Active confirmed Vital Signs Blood pressure diastolic 78 mm Hg 09/28/2024 Height 5 ft 9 in in 09/28/2024 Blood pressure systolic 125 mm Hg 09/28/2024 Weight 135 lbs 09/28/2024 BMI 19.93 kg/m2 09/28/2024 Encounters Encounter Location Date Provider Diagnosis [address] [address] 01/06/2024 Sonia Perica Atherosclerosis of artery of both lower extremities I70.203 ; Pain in toe of left foot M79.675 ; Pain in toe of right foot M79.674 and Tinea unguium B35.[address] [address] 03/29/2024 Sonia Perica Atherosclerosis of artery of both lower extremities I70.203 ; Pain in toe of left foot M79.675 ; Pain in toe of right foot M79.674 and Tinea unguium B35.[address] [address] 06/28/2024 Sonia Perica Atherosclerosis of artery of both lower extremities I70.203 ; Pain in toe of left foot M79.675 ; Pain in toe of right foot M79.674 ; Tinea unguium B35.1 and Xerosis of skin L85.[address] [address] 09/28/2024 Sonia Perica Atherosclerosis of artery of both lower extremities I70.203 ; Xerosis of skin L85.3 ; Pain in toe of left foot M79.675 ; Pain in toe of right foot M79.674 and Tinea unguium B35.1 Assessments Encounter Date Diagnosis (ICD Code) Assessment Notes Treatment Notes Treatment Clinical Notes Section Notes 01/06/2024 Atherosclerosis of artery of both lower extremities (ICD-10 - I70.203) 03/29/2024 Atherosclerosis of artery of both lower extremities (ICD-10 - I70.203) 06/28/2024 Atherosclerosis of artery of both lower extremities (ICD-10 - I70.203) 09/28/2024 Xerosis of skin (ICD-10 - L85.3) 09/28/2024 Atherosclerosis of artery of both lower extremities (ICD-10 - I70.203) 09/28/2024 Pain in toe of left foot (ICD-10 - M79.675) 06/28/2024 Pain in toe of left foot (ICD-10 - M79.675) 03/29/2024 Pain in toe of left foot (ICD-10 - M79.675) 01/06/2024 Pain in toe of left foot (ICD-10 - M79.675) 01/06/2024 Pain in toe of right foot (ICD-10 - M79.674) 03/29/2024 Pain in toe of right foot (ICD-10 - M79.674) 06/28/2024 Pain in toe of right foot (ICD-10 - M79.674) 09/28/2024 Pain in toe of right foot (ICD-10 - M79.674) 09/28/2024 Tinea unguium (ICD-10 - B35.1) 06/28/2024 Tinea unguium (ICD-10 - B35.1) 03/29/2024 Tinea unguium (ICD-10 - B35.1) 01/06/2024 Tinea unguium (ICD-10 - B35.1) 06/28/2024 Xerosis of skin (ICD-10 - L85.3) Plan Of Treatment Next Appt Details Provider Name:Sonia davis, 12/30/2024 11:00:00 AM, [address] [place] [address], [phone], Insurance Providers Payer Name Payer Address Payer Phone Subscriber Number Group Number Insured Name Patient Relationship to Insured Coverage Start Date Coverage End Date Medicare [employer] [address] [place] [address] [id number] Jovani Cavanaugh Self - patient is the insured [facility] ([facility]) [address] [place], [place] [id number] Jovani Cavanaugh Self - patient is the insured Medical (General) History Medical History History ICD Code Anemia Arthritis Back,Hip,and Knee pain Broken bones Cancer Cataracts Depression Gout High blood pressure Osteoporosis Parkinsons disease Warts Measles Surgical History Surgery Date(Month/Year) back surgery colonoscopy Hospitalization History Reason Date(Month/Year[place] [facility] 12 stic08/08
== END 2024-11-22 14:56 | disposition home or self-care (01) ==
LOC: HO.HMCSH 14:21
PROVIDERS: PCP Internal Medicine; Visit Provider Internal Medicine
DX: I10 Essential (primary) hypertension (principal)

== ENCOUNTER → 2024-11-22 14:21 | Outpatient (BNVA) | payer MEDICARE, OTHER, SELFPAY | PROVIDERS: PCP Internal Medicine; Visit Provider Internal Medicine | DX: I10 Essential (primary) hypertension (principal); Z87.891 Personal history of nicotine dependence | CPT/HCPCS: 99202 ==

== ENCOUNTER 2024-12-13 13:34 | Outpatient (AMB) | payer MEDICARE, OTHER, SELFPAY ==
--- NOTE | 2024-12-13 13:18 | A.OFFPC_ITS ---
Intake Visit Reasons: discuss medications Public Health Dentist Required: No Allergies No Known Allergies Allergy (Verified 12/20/24 06:44) Medication List - Last Reconciled 12/20/24 by Arsenio Guadarrama MD alendronate 1 tab PO SA@0900 carbidopa-levodopa 25-100 mg 1 tab PO TID docusate sodium (Colace) 100 mg PO TID furosemide 1 tab PO DAILY ipratropium bromide 1 spray intranasal QID PRN lactulose 30 mL PO BID PRN losartan 1 tab PO DAILY lovastatin 1 tab DAILY metoprolol succinate ER 50 mg PO DAILY multivitamin 1 tab PO DAILY pentazocine-naloxone 50-0.5 mg 1 tab PO TID 30 days psyllium husk (Metamucil Fiber Singles) 3.4 grams PO DAILY 30 days selegiline HCl 1 cap PO DAILY Tobacco use date assessed: 12/13/24 Dental Screening Dental Screen Date: 11/22/24 HPI discuss medications HPI Details Presented to discuss his chronic medical conditions. Compliant with meds. Telehealth visit [facility] Medical History Collar bone fracture Compression fracture of body of thoracic vertebra Osteoporosis Constipation Depression Anemia Parkinsons disease High cholesterol Hypertension Positive occult stool blood test Surgical History History of kyphoplasty Family History (Updated 12/13/24 @ 13:19 by RAMÓN Guerra) Mother No problems noted. Father No problems noted. Social History Household Members: None Household Members Other:: last week. family has been staying with him. Housing: House Do you presently have visiting nurse or other home services: No Alcohol intake: current Alcohol intake frequency: does not drink Patient Tobacco Use Status: Former Tobacco user service: No Current occupational status: retired Cognitive needs: Yes (cane ) Hearing needs: No Vision needs: Yes (rx glasses) Questionnaire PHQ-9 Over the last 2 weeks, how often have you been bothered by any of the following problems? 1. Little interest or pleasure in doing things: not at all 2. Feeling down, depressed, or hopeless: not at all 3. Trouble falling or staying asleep, or sleeping too much: not at all 4. Feeling tired or having little energy: not at all 5. Poor appetite or overeating: not at all 6. Feeling bad about yourself - or that you are a failure or have let yourself or your family down: not at all 7. Trouble concentrating on things, such as reading the newspaper or watching television: not at all 8. Moving or speaking so slowly that other people could have noticed. Or the opposite - being so fidgety or restless that you have been moving around a lot more than usual: not at all 9. Thoughts that you would be better off or of hurting yourself in some way: not at all Total score: 0 Source: Developed by Drs. Gustavo Troy, Samia Naranjo, Kush Rogers and colleagues, with an educational jag from [employer] Thrive Questionnaire Date Thrive assessed: 11/22/24 I am a: Patient What is your living situation today?: I have a steady place to live Within the past 12 months, did the food you bought not last and you didn't have the money to get more?: Never true Within the past 12 months, did you worry whether your food would run out before you got money to buy more?: Never true Do you have trouble paying for medicines?: No Do you have trouble getting transportation to medical appointments?: No Do you have trouble paying your heating and electricity bill?: No Do you have trouble taking care of your child, family member or friend?: No Do you have trouble with day-to-day activities such as bathing, preparing meals, shopping, managing finances, etc.?: No Are you currently unemployed and looking for a job?: No Are you interested in more education?: No Please select the resources that you would like help with: None THRIVE Score: 0 AUDIT C Alcohol Use Questionnaire (AUDIT-C) 1. How often do you have a drink containing alcohol?: Never 3. How often do you have six or more drinks on one occasion?: Never Total Score: 0 RAVIDNER-7 AMB Questionnaire RAVINDER-7 Date RAVINDER - 7 assessed: 11/22/24 Feeling nervous, anxious, or on edge: 0 = Not at all Not being able to stop or control worryin = Not at all Worrying too much about different things: 0 = Not at all Trouble relaxin = Not at all Being so restless that it is hard to sit still: 0 = Not at all Becoming easily annoyed or irritable: 0 = Not at all Feeling afraid as if something awful might happen: 0 = Not at all Total RAVINDER-7 score (0-4 normal; 5-9 mild; 10-14 moderate; 15-21 severe): 0 Source: Developed by Drs. Gustavo Troy, Samia Naranjo, Kush Rogers and colleagues, with an educational jag from [employer]. Physical exam (Primary Care) Tobacco/Smoking Status: Tobacco use Status Tobacco use date assessed 12/13/24 12/13/24 13:21 Patient Tobacco Use Status Former Tobacco user 12/13/24 13:21 PHQ-9: PHQ-9 Score PHQ-9: Total score 0 12/13/24 13:53 Thrive Assessment: Date of Thrive Assessment Date Thrive assessed 11/22/24 12/13/24 13:21 Const General: cooperative and healthy appearing Nutritional Appearance: well nourished Orientation/consciousness: patient oriented x3 Limitations: no limitations HENMT Head: Yes normal to inspection Eyes General: appearance normal, both eyes and all related structures Neck Neck: Yes normal visual inspection Chest Chest palpation & inspection: normal palpation of entire chest wall Resp Effort & Inspection: normal respiratory effort Neuro General: patient oriented x3 Telehealth Telehealth Telehealth Platform: Telephone Location of provider rendering services: practice address Location of patient: address on file Patient Identification confirmed using: Name, : Yes Telehealth method: voice only Patient verbally consented to treatment: Yes Patient verbally consented to billing insurance company: Yes Patient informed of any privacy concerns related to visit: Yes Minutes spent on Phone/Video with Pt.: 10 Coding Level of Care Code Tele Est Pt Level 3 (96185) Complex EM visit Add On G2211 Diagnoses Chronic pain G89.29 Assessment & Plan Assessment & Plan (1) Chronic pain: Code(s): G89.29 - Other chronic pain Plan: Spoke to son. 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 Advised to continue at the same dosage Medications: Changed From pentazocine-naloxone 50-0.5 mg 1 tab PO TID 15 tabs 0RF 5 days To pentazocine-naloxone 50-0.5 mg 1 tab PO TID 90 tabs 0RF 30 days Refilled pentazocine-naloxone 50-0.5 mg 1 tab PO TID 15 tabs 0RF 5 days
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
--- OUTSIDE RECORDS SUMMARY | 2024-12-13 14:43 | XMS_ITS | Patient Health Record ---
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 Name Role Phone Bernardo EL, Chadd Primary Care Provider Douglas Lemon Jr Unavailable [phone] Reason For Referral No Information Medications Medication SIG (Take, Route, Fr equency, Duration) Notes Start Date End Date Status Mevacor Active Talwin Active Procardia XL 30mg Ac tive Problems Problem Type SNOMED Code ICD Code Onset Dates Problem Status W/U Status Risk Notes Problem Feces contents abnormal (982206095) Abnormal findings in stool (792.1) Active confirmed Problem Iron deficiency anemia (10553325) Iron deficiency anemia (280.9) Active confirmed Problem Ileitis (51150495) Ileitis (558.9) Active confirmed Problem Kidney lesion (38264040730100 ) Kidney lesion (593.9) Active confirmed Plan Of Treatment Pending Test Test Name Order Date CT ABD & PELVIS WITH CONTRAST 07/16/2012 US RENAL BILATERAL 07/30/2012 Insurance Providers Payer Name Payer Address Payer Phone Subscriber Number Group Number Insured Name Patient Relationship to Insured Coverage Start Date Coverage End Date MEDICARE OF [place] [address] [facility] [place] [address] [id number] JIMMY RO Self - patient is the insured [facility] [address] [place] [address] [phone] [id number] JIMMY RO Self - patient is the insured Medical (General) History Medical History History ICD Code Anemia HTN Elevated cholesterol Back pain Skin cancer Surgical History Surgery Date(Month/Year) Left knee surgery
== END 2024-12-13 14:31 | disposition home or self-care (01) ==
LOC: HO.HMCSH 13:34
PROVIDERS: PCP Internal Medicine; Visit Provider Internal Medicine
DX: G89.29 Other chronic pain (principal)